=== PATIENT | female | born 1935 | race Caucasian/White ===

== ENCOUNTER 2021-03-05 13:07 | Inpatient (IN) | payer MEDICARE, SELFPAY ==
[2021-03-05] VITALS (11 sets, daily range): BP systolic 103–137; BP diastolic 49–74; PULSE 84–123; RESP 14–23; TEMP 36.6–37.6; O2SAT 96–99
--- NOTE | ~2021-03-05 | XR_ITS ---
EXAMINATION: XR chest 1V portable EXAM DATE: 03/05/2021 13:31 INDICATION: Altered mental status. TECHNIQUE: Portable AP frontal chest x-ray was obtained. Comparison is made to prior examination from 07/10/2018. FINDINGS: The lungs are clear. There are no pleural effusions. Cardiac silhouette is prominent but magnified on this AP technique. There is no pneumothorax suspected. The bones and soft tissues are unremarkable. IMPRESSION: No acute cardiopulmonary findings. Reviewed, dictated and finalized at location A.
--- NOTE | ~2021-03-05 | CT_ITS ---
EXAMINATION: CT brain wo con DATE: 03/10/2021 16:41 INDICATION: Confusion. TECHNIQUE: Computed tomography (CT) of the head was performed without intravenous contrast. The mA wa s adjusted according to patient size. Iterative reconstruction technique was employed. The dose-lengt h product was 605.33 mGy-cm. COMPARISON: Head CT 03/05/2021 FINDINGS: There is no intracranial hemorrhage, acute infarction, or abnormal intracranial mass lesion . There are scattered areas of low attenuation in the cerebral white matter, which is within normal l imits for the patient's age. The ventricles are normal in size. There is mild mucosal thickening in t he ethmoid sinuses. There are likely changes of ocular lens replacement surgeries. There are trace bi lateral mastoid effusions. IMPRESSION: 1. Normal aging brain. Reviewed, dictated and finalized at location A. IMPRESSION: 1. Normal aging brain.
--- NOTE | ~2021-03-05 | XR_ITS ---
EXAMINATION: XR hip RT 2V w AP pelvis EXAM DATE: 03/05/2021 14:20 INDICATION: Fall, right leg pain. Initial encounter. TECHNIQUE: Right hip frontal, crosstable lateral projections for interpretation. Frontal projection p kavin. Comparison is made to prior examination from 07/07/2018. FINDINGS: Acute closed posttraumatic right hip transcervical femoral neck fracture with superior disp lacement, impaction. Pelvic ring appears intact. IMPRESSION: Acute right hip transcervical neck fracture, impaction and superior displacement. Reviewed, dictated and finalized at location A. IMPRESSION: Acute right hip transcervical neck fracture, impaction and superio r displacement.
--- NOTE | ~2021-03-05 | CT_ITS ---
EXAMINATION: CT brain wo con EXAM DATE: 03/05/2021 13:54 INDICATION: Fall right head injury. Altered mental status. TECHNIQUE: Spiral CT of the head was performed without contrast. Axial, coronal and sagittal images were reviewed. The dose-length product (DLP) for this examination was 681.00 mGy-cm. The exposure w as tailored according to patient size, and iterative reconstruction (ASIR) was used as additional dos e reduction technique. Comparison is made to prior examination from 07/07/2018. FINDINGS: There is no acute intraparenchymal hemorrhage. No evidence of intraparenchymal brain mass lesion. No evidence of acute infarction. Please note that initial head CT has limited sensitivity f or small or acute infarctions. There is periventricular and subcortical hypodensity, nonspecific but probably related to small vessel ischemic disease. There is prominence of the sulci and ventricles related to cerebral atrophy. There is intracranial carotid arteriosclerosis. There are no extra-ax ial collections. There is no mass effect or midline shift. Patient has had bilateral ocular lens dhaliwal rgery. Soft tissue is unremarkable. The visualized sinuses and mastoid air cells are well aerated. IMPRESSION: 1. No acute intracranial findings. 2. Chronic age related findings. Reviewed, dictated and finalized at location A.
--- NOTE | ~2021-03-05 | US_ITS ---
EXAMINATION: US renal BI DATE: 03/11/2021 16:54 INDICATION: Fungal infection. TECHNIQUE: Multiple ultrasound grayscale images of the kidneys were obtained. COMPARISON: None. FINDINGS: The right kidney measures 9.5 x 4.4 x 5.1 cm. The left kidney measures 9.3 x 4.9 x 5.8 cm. The kidney s demonstrate normal parenchymal echogenicity. There is no hydronephrosis. The bladder is normal. IMPRESSION: 1. Normal kidneys. No hydronephrosis. Reviewed, dictated and finalized at location A.
--- NOTE | ~2021-03-05 | XR_ITS ---
XR hip RT min 2V DATE: 03/06/2021 19:05 INDICATION: Right bipolar hip TECHNIQUE: Postoperative AP and crosstable lateral views of right hip COMPARISON: 03/05/2021 right hip FINDINGS: There is resection of the right femoral head and replacement by a bipolar hip prosthesis wh ich is normally positioned in the right acetabular fossa. There is expected mild postoperative intra- articular air. Diffuse osteopenia. The pubic right sacroiliac joint are intact. IMPRESSION: Right bipolar hip replacement Reviewed, dictated and finalized at location A.
--- NOTE | 2021-03-05 13:18 | ECG_ITS ---
Measurements Intervals Foster Rate: 104 P: 87 GA: 118 QRS: 48 QRSD: 86 T: 61 QT: 347 QTc: 458 Interpretive Statements SINUS TACHYCARDIA WITH SHORT GA INTERVAL MINIMAL Q WAVES- INF/HIGH LAT LEADS BASELINE ARTIFACT- I, II, AVR, V1 BORDERLINE ECG Electronically Signed On 03-05-2021 17:20:12 CDT by Justin Phillips D.O.
[2021-03-05 13:35] LABS: Basophils Percent Auto 0.1 % (0.2-1.2); Hematocrit 32.7 % (37.0-47.0); Hemoglobin 10.6 g/dL (12.0-15.0); Immature Granulocyte Absolute 0.09 K/mm3 (0.00-0.031); Immature Granulocyte Percent A 0.8 % (0-0.5); Lymphocytes Absolute Auto 0.49 K/mm3 (0.9-3.2); Lymphocytes Percent Auto 4.5 % (18.3-44.2); Mean Corpuscular HGB Conc 32.4 g/dl (32-36); Mean Corpuscular Hemoglobin 29.1 pg (26-34); Mean Corpuscular Volume 89.8 fl (80-100); Mean Platelet Volume 9.1 fl (7.4-10.4); Monocytes Absolute Auto 0.5 K/mm3 (0.1-0.6); Monocytes Percent Auto 4.5 % (2.6-8.5); Neutrophils Absolute Auto 9.8 K/mm3 (1.3-6.7); Neutrophils Percent Auto 90.1 % (45.5-73.1); Platelet Count Result 283 k/mm3 (150-375); Red Blood Count 3.64 M/mm3 (4.2-5.4); Red Cell Distribution Width 13.3 % (11.5-14.5); White Blood Count 10.9 K/mm3 (4.5-10.0)
--- NOTE | 2021-03-05 13:42 | ED.FALL ---
HPI - Fall General Chief Complaint: Fall Stated Complaint: fall, ams Time Seen by Provider: 03/05/21 13:25 History of Present Illness HPI Narrative: 85 yo female w/ h/o dementia presents form home after a fall. She is not able to provide history due to mental status. Her daughters boyfriend provides the history. He reports that she fell early this morning. She has not been able to walk since that time. In addition to this she has seem more confused than usual. She did hit her head in the fall. Related Data Home Medications Medication Instructions Recorded Confirmed amlodipine 10 mg PO DAILY 03/05/21 03/05/21 ciprofloxacin HCl 250 mg PO BID 03/05/21 03/05/21 empagliflozin [Jardiance] 25 mg PO DAILY 03/05/21 03/05/21 escitalopram oxalate 5 mg PO DAILY 03/05/21 03/05/21 Allergies Allergy/AdvReac Type Severity Reaction Status Date / Time prednisone Allergy Unknown Other Verified 03/05/21 18:14 Review of Systems Review of Systems: ROS unobtainable: Yes unobtainable due to mental status PMFSH Past Medical History Medical History Diabetes Fuchs' corneal dystrophy Hypertension Kidney stone Parkinsons Surgical History Surgical History H/O cataract extraction H/O: hysterectomy History of vocal cord polypectomy Family History Family History Mother Congestive heart failure Son Diabetes mellitus Father Heart disease Social History Social History Social History: The patient is . Petrona cantrell is her durable power adult basic education manager for healthcare. The patient is listed as a full code. It was noted that the patient smoked as a teenager. According to records there is no alcohol or drug use. The patient has a son and daughter. Years smoked: 10 Smoking status: Former smoker Tobacco type: cigarettes Second hand tobacco smoke exposure: No Additional smoking assessment comments: quite in her 30s Alcohol intake: never Substance use: never Spiritual care concerns: No Exam Const: General: no acute distress and alert Nutritional Appearance: well nourished HENMT: Head: contusion left parietal and no lacerations Eyes: Pupils: Equal, round and reactive pupils present EOM: EOMs intact bilaterally Neck: Neck: normal visual inspection Resp: Effort & Inspection: normal respiratory effort Auscultation: clear to auscultation bilaterally, no rales, no rhonchi and no wheezes Cardio: Jugular venous distension: no JVD Rate: regular rate Rhythm: regular rhythm GI: Inspection: non-distended GI Palp: Yes Soft to palpation and No Tenderness to palpation present (GI) Skin: General skin exam: normal color Neuro: General: moves all extremities Speech: normal speech Other: Talkative, but extremely difficult to understand. Extrem: Other: Right leg shortened and externally rotated. Psych: Appearance: well kempt Affect: normal affect Course Vital Signs Vital signs: Vital Signs Temperature 37.6 C 03/05/21 13:11 Pulse Rate 103 H 03/05/21 13:11 Respiratory Rate 20 03/05/21 13:11 Blood Pressure 137/56 L 03/05/21 13:11 Pulse Oximetry 96 03/05/21 13:11 Temperature 36.6 C 03/05/21 20:44 Pulse Rate 104 H 03/05/21 20:44 Respiratory Rate 20 03/05/21 20:44 Blood Pressure 116/58 L 03/05/21 20:44 Pulse Oximetry 99 03/05/21 20:44 MDM - Fall Medical Records Attestation: I reviewed the patient's medical records. Lab Data Attestation: I reviewed the patient's lab results. Result diagrams: 03/05/21 13:24 03/05/21 13:24 Labs: Lab Results 03/05/21 03/05/21 03/05/21 Range/Units 13:24 13:24 13:24 WBC 10.9 H (4.5-10.0) K/mm3 RBC 3.64 L (4.2-5.4) M/mm3 Hgb 10.6 L (12.0-15.0) g/dL Hct 32.7 L (37.0
[2021-03-05 13:57] LABS: Alanine Aminotransferase 22 U/L (4-35); Albumin Level 4.1 g/dL (3.5-5.1); Alkaline Phosphatase 123 U/L (38-126); Anion Gap 11 mmol/L (8-16); Aspartate Amino Transferase 33 U/L (14-36); Bilirubin,Total 0.9 mg/dL (0.2-1.3); Blood Urea Nitrogen 12 mg/dL (7-17); CRP 2.7 mg/dL (<1.0); Carbon Dioxide 19 mmol/L (22-30); Chloride 109 mmol/L (98-107); Estimated CRCL calculation 38 ml/min; Estimated Glomerular Filt Rate > 60; Glucose 204 mg/dL (65-110); Potassium 3.9 mmol/L (3.4-5.0); Sodium 139 mmol/L (137-145)
[2021-03-05 14:58] LABS: Lactic Acid Reflex 1.3 mmol/L (0.7-2.1)
[2021-03-05 15:18] LABS: INR 1.1; Prothrombin Time 13.6 Seconds (11.1-14.7)
--- NOTE | 2021-03-05 16:26 | PM.CNOR ---
Assessment and Plan Assessment and plan (1) Displaced fracture of right femoral neck: Code(s): S72.001A - Fracture of unspecified part of neck of right femur, initial encounter for closed fracture Status: Acute Assessment and Plan: Displaced right femoral neck fracture. Patient seen and examined in the ER. Patient is a poor historian. Patient will need a Bipolar hemiarthroplasty of the right hip. Tentative plan is for surgery tomorrow. She will need to be NPO at midnight. Dr. Mendes will call the patient's floorperson tomorrow morning to discuss surgery. Spoke with ER nurse who stated that the patient has had trouble with anesthesia in the past. History of Present Illness HPI Consult date: 03/05/21 Chief complaint: hip fracture,ams Narrative: Patient seen and admitted through the ER. Patient had a fall and was found to have a displaced femoral neck fracture. Patient is a poor historian due to mental status. Notes pain in the right hip. Able to wiggle toes. No other complaints. Review of Systems Review of Systems: ROS unobtainable: Yes unobtainable due to mental status PMFSH Social History Social History Gender identity (if verbalized by the patient): Female Meds Home Medications and Allergies Home Medications Medication Instructions Recorded Confirmed Type amlodipine 10 mg PO DAILY 03/05/21 03/05/21 History empagliflozin [Jardiance] 25 mg PO DAILY 03/05/21 03/05/21 History escitalopram oxalate 5 mg PO DAILY 03/05/21 03/05/21 History Allergies Allergy/AdvReac Type Severity Reaction Status Date / Time prednisone Allergy Intermediate Other Verified 03/05/21 13:19 Vital Signs Vital Signs - 24 hr 03/05/21 13:11 Temperature 99.6 F Pulse Rate 103 H Respiratory Rate 20 Blood Pressure 137/56 L Pulse Oximetry 96 Exam Narrative: Patient is alert and oriented to self. Resting comfortably in bed. No acute distress. No erythema or ecchymosis. No rashes or lesions noted. Warm, normal appearing skin. Tenderness at left hip. Left lower leg shortened and externally rotated. Calf nontender. Distal pulses palpable. Normal capillary refill. Patient able to move and wiggle toes. Light touch sensation intact. Posadas catheter in place. Results Labs Result Diagrams: 03/05/21 13:24 08/26/21 13:24 Labs: Abnormal lab results 03/05/21 03/05/21 Range/Units 13:24 13:24 WBC 10.9 H (4.5-10.0) K/mm3 RBC 3.64 L (4.2-5.4) M/mm3 Hgb 10.6 L (12.0-15.0) g/dL Hct 32.7 L (37.0-47.0) % Immature Gran % (Auto) 0.8 H (0-0.5) % Neut % (Auto) 90.1 H (45.5-73.1) % Lymph % (Auto) 4.5 L (18.3-44.2) % Baso % (Auto) 0.1 L (0.2-1.2) % Lymph # (Auto) 0.49 L (0.9-3.2) K/mm3 Abs Immat Gran (auto) 0.09 H (0.00-0.031) K/mm3 Absolute Neuts (auto) 9.8 H (1.3-6.7) K/mm3 Chloride 109 H (98-107) mmol/L Carbon Dioxide 19 L (22-30) mmol/L Glucose 204 H (65-110) mg/dL C-Reactive Protein 2.7 H (<1.0) mg/dL H & H 03/05/21 Range/Units 13:24 Hgb 10.6 L (12.0-15.0) g/dL Hct 32.7 L (37.0-47.0) % Coagulation 03/05/21 Range/Units 13:24 INR 1.1 All other labs normal.
--- NOTE | 2021-03-05 17:31 | PM.IMHP ---
H&P: HPI History of Present Illness Date/Time: 03/05/21 17:31 this is a 85-year-old female patient who was brought in to the emergency room after a fall. The patient is mumbling and I am not able to communicate with the patient. I called her salesperson recreational vehicles Petrona Cantrell who is listed under her contacts in her chart and listed as her daughter. I left a message for them to return my phone call but have not heard back from them. I am not able to obtain any history of present illness from the patient or any other history at this point. I retrieved information from her old record. The hip and pelvis x-ray was read as acute right hip transcervical neck fracture, impaction and superior displacement. Head CT was read as no acute intracranial findings. Chronic age-related findings. Dr. Mendes has been consulted. Her H&H is listed as 10.6 and 32.7 which was comparable to her previous lab draw in 2019. Blood sugar was listed as 204. The patient is being admitted to inpatient services on the date of service of 03/05/2021. Chief Complaint: Fall Review of Systems Review of Systems: ROS unobtainable: Yes unobtainable due to mental status PMFSH Past Medical History Medical History (Updated 03/05/21 @ 17:55 by Cinthia Olivo NP) Diabetes Fuchs' corneal dystrophy Hypertension Kidney stone Parkinsons Surgical History Surgical History (Updated 03/05/21 @ 17:46 by Cinthia Olivo NP) H/O cataract extraction H/O: hysterectomy History of vocal cord polypectomy Family History Family History (Updated 03/05/21 @ 17:48 by Cinthia Olivo NP) Mother Congestive heart failure Son Diabetes mellitus Father Heart disease Social History Social History (Updated 03/05/21 @ 17:48 by Cinthia Olivo NP) Social History: The patient is . Petrona cantrell is her durable power claim attorney for healthcare. The patient is listed as a full code. It was noted that the patient smoked as a teenager. According to records there is no alcohol or drug use. The patient has a son and daughter. Gender identity (if verbalized by the patient): Female Meds Home Medications and Allergies Home Medications Medication Instructions Recorded Confirmed Type amlodipine 10 mg PO DAILY 03/05/21 03/05/21 History empagliflozin [Jardiance] 25 mg PO DAILY 03/05/21 03/05/21 History escitalopram oxalate 5 mg PO DAILY 03/05/21 03/05/21 History Allergies Allergy/AdvReac Type Severity Reaction Status Date / Time prednisone Allergy Intermediate Other Verified 03/05/21 13:19 Vital Signs Vital Signs - 24 hr 03/05/21 13:11 03/05/21 13:15 03/05/21 13:18 Temperature 37.6 C Pulse Rate 103 H 104 H 105 H Respiratory Rate 20 14 23 H Blood Pressure 137/56 L 137/56 L Pulse Oximetry 96 96 03/05/21 13:31 03/05/21 14:11 03/05/21 14:15 Temperature Pulse Rate 104 H 102 H 102 H Respiratory Rate 21 H 19 19 Blood Pressure 112/49 L Pulse Oximetry 98 98 98 03/05/21 14:30 03/05/21 14:45 03/05/21 15:00 Temperature Pulse Rate 108 H 123 H 108 H Respiratory Rate 21 H 23 H 21 H Blood Pressure Pulse Oximetry 99 97 Exam Const: General: cooperative, comfortable, no acute distress, well developed, awake and Physically active Nutritional Appearance: average body habitus and well nourished Orientation/consciousness: oriented to person Limitations: altered mental status HENMT: Head: normal to inspection, No palpable skull fracture present, normocephalic and atraumatic Ears: hearing grossly normal bilaterally and external ears normal General nose exam: Normal external nose present and Normal nares present Eyes: General: appearance normal, both eyes and all related structures Alignment and Position: alignment normal Periorbital: periorbital findings normal Eyelids: eyelids normal Conjunctivae: conjunctivae normal Sclera: sclerae normal Cornea: corneas normal Pupils: Equal, round and reactive pupils present (Ri
[2021-03-05 17:33] LABS: Add Urine Microscopic? YES; Appearance Urine Cloudy (Clear); Bacteria Urine Trace /hpf; Bilirubin Urine Negative (Negative); Blood Urine Negative (Negative); Budding Yeast Urine Present /hpf; Color Urine Yellow (Yellow); Glucose Urine UA 3+ mg/dL (Negative); Ketones Urine Trace mg/dL (Negative); Leukocyte Esterase Ur Trace LEU/UL (Negative); Mucus Urine Rare /lpf; Nitrate Urine Negative (Negative); Protein Urine Negative (Negative); RBC Urine 21-50 /hpf (0-2); Specific Grav Ur 1.022 (1.001-1.035); Squamous Epithelial Cell Urine Moderate /hpf (Few); Urobilinogen Urine Negative mg/dL (<2.0)
--- NOTE | 2021-03-05 18:00 | ADMGEN ---
This patient, Reba Petersen, was admitted to Medical Room 246-. Patient/family oriented to hospital policies and general routines including ID bracelet, bed and alarms, visiting hours, pain management, procedures, bathroom and other care routines, personal items, smoking policy, room service/diet, and visiting hours. Information on how to activate the Rapid Response Team has been discussed. Patient/Family are encouraged to report perceived risks to care and to ask questions if they do not understand what they are told or what they should do.
[2021-03-05] MEDS: SODIUM CHLORIDE 0.9% IV 1,000 ML 75 ML IV CONT (18:52)
[2021-03-05 22:18] LABS: Glucose Point of Care 119 mg/dl (65-105)
[2021-03-06] VITALS (19 sets, daily range): BP systolic 83–155; BP diastolic 49–102; PULSE 78–120; RESP 12–22; TEMP 36.3–38.2; O2SAT 93–100; BMI 21.2
[2021-03-06 06:01] LABS: Basophils Percent Auto 0.3 % (0.2-1.2); Eosinophils Percent Auto 0.3 % (0-4.4); Hematocrit 28.7 % (37.0-47.0); Hemoglobin 8.9 g/dL (12.0-15.0); Immature Granulocyte Absolute 0.03 K/mm3 (0.00-0.031); Immature Granulocyte Percent A 0.3 % (0-0.5); Lymphocytes Absolute Auto 0.54 K/mm3 (0.9-3.2); Lymphocytes Percent Auto 5.8 % (18.3-44.2); Mean Corpuscular Hemoglobin 28.6 pg (26-34); Mean Corpuscular Volume 92.3 fl (80-100); Monocytes Absolute Auto 0.6 K/mm3 (0.1-0.6); Monocytes Percent Auto 6.4 % (2.6-8.5); Neutrophils Absolute Auto 8.1 K/mm3 (1.3-6.7); Neutrophils Percent Auto 86.9 % (45.5-73.1); Platelet Count Result 214 k/mm3 (150-375); Red Blood Count 3.11 M/mm3 (4.2-5.4); Red Cell Distribution Width 13.6 % (11.5-14.5); White Blood Count 9.3 K/mm3 (4.5-10.0)
[2021-03-06 06:09] LABS: Alanine Aminotransferase 17 U/L (4-35); Albumin Level 3.3 g/dL (3.5-5.1); Alkaline Phosphatase 103 U/L (38-126); Anion Gap 11 mmol/L (8-16); Aspartate Amino Transferase 30 U/L (14-36); Blood Urea Nitrogen 11 mg/dL (7-17); Calcium 8.3 mg/dL (8.4-10.2); Carbon Dioxide 20 mmol/L (22-30); Chloride 108 mmol/L (98-107); Estimated CRCL calculation 43 ml/min; Estimated Glomerular Filt Rate > 60; Glucose 108 mg/dL (65-110); Potassium 3.6 mmol/L (3.4-5.0); Sodium 139 mmol/L (137-145)
[2021-03-06 06:34] LABS: Hemoglobin A1C 6.9 % (<5.7)
[2021-03-06] MEDS: SODIUM CHLORIDE 0.9% IV 1,000 ML 75 ML IV CONT (08:38)
--- NOTE | 2021-03-06 08:57 | P.PNIM_ITS ---
Progress Note: A&P Assessment and Plan (1) Displaced fracture of right femoral neck: Code(s): S72.001A - Fracture of unspecified part of neck of right femur, initial encounter for closed fracture Status: Acute Assessment and Plan: * Patient was found on the floor * Hip xray shows fracture * Ortho consulted * Post op day 0 * Pain: Roxicodone 2.5-5mg PO Q4hr PRN * Anti-emetic 4mg IV Q4hr * Cefazolin 2gm x 3 bags * DVT prophylaxis- SCDs * Urinary catheter for comfort, immobility, and strict I&Os (2) Hypertension: Code(s): I10 - Essential (primary) hypertension Status: Chronic Assessment and Plan: * Current blood pressure 126/54 * Continue home amlodipine 10mg PO daily * Trend BP * Adjust medications as needed (3) Diabetes: Code(s): E11.9 - Type 2 diabetes mellitus without complications Status: Chronic Assessment and Plan: * Glucose on labs 108 * Accu-Cheks AC and HS. * A1c 6.9 * Initiate SSI * Trend labs * Adjust medications as needed. (4) UTI (urinary tract infection): Code(s): N39.0 - Urinary tract infection, site not specified Status: Acute Assessment and Plan: * Reported that patient had a recent UTI that was being treated with Cipro 250mg PO BID * Patient seems better today with conversation and is not pulling off her clothes * UA shows trace leukocyte esterase, white blood cells 10-15, trace bacteria, rare mucus * Urine culture pending * Levofloxcin 750mg Q48hr IV started * deescalate antibiotics with culture results * strict I&Os (5) Acute metabolic encephalopathy: Code(s): G93.41 - Metabolic encephalopathy Status: Acute Assessment and Plan: * Head CT: Showed chronic age related changes * Probably from UTI * Trend symptoms for improvement Time Spent With Patient Time with patient: Greater than 35 minutes Subjective Date/time seen: 03/06/21 08:20 Interval history: Patient is an 85 year old female here after a fall with a notable hip fracture. Hip xray shows Acute right hip transcervical neck fracture, impaction and superior displacement. Since admission she has been very confused. Upon examination, she would answer some questions, but then would start to slur and kind talk jibberish. It is noted that she did have a UTI that was supposed to be treated with cipro outpatient however, it was noted that she was not taking her medications in an appropriate manner. She will follow commands, and she does recall some things. She told me that she was not where she was supposed to be, but could not tell me where she is. Her UA did show that there could be some residual UTI or even a persistent UTI that was never really treated. Patient started on levofloxacin for potential UTI. Cardiology has been consulted for risk assessment. It appears that the patient was seen by Dr. Nina in the past for bacteremia in 2019. At that time a AKILAH and ECHO was performed and the findings are listed below. The EKG at this visit shows sinus tachycardia. No ST elevation or depression noted. There is just concern with current mental status that a thorough history or even medication li st has been obtained. Echo from 07/12/2018 1. Normal left ventricular systolic function. No focal wall motion abnormalities. Normal left ventricular size. Normal left ventricular diastolic function. Ejection fraction is visually estimated at 60 %. 2. Normal appearance of the
--- NOTE | 2021-03-06 08:57 | PM.IMPN ---
Progress Note: A&P Assessment and Plan (1) Displaced fracture of right femoral neck: Code(s): S72.001A - Fracture of unspecified part of neck of right femur, initial encounter for closed fracture Status: Acute Assessment and Plan: Patient was found on the floor Hip xray shows fracture Ortho consulted Post op day 0 Pain: Roxicodone 2.5-5mg PO Q4hr PRN Anti-emetic 4mg IV Q4hr Cefazolin 2gm x 3 bags DVT prophylaxis- SCDs Urinary catheter for comfort, immobility, and strict I&Os (2) Hypertension: Code(s): I10 - Essential (primary) hypertension Status: Chronic Assessment and Plan: Current blood pressure 126/54 Continue home amlodipine 10mg PO daily Trend BP Adjust medications as needed (3) Diabetes: Code(s): E11.9 - Type 2 diabetes mellitus without complications Status: Chronic Assessment and Plan: Glucose on labs 108 Accu-Cheks AC and HS. A1c 6.9 Initiate SSI Trend labs Adjust medications as needed. (4) UTI (urinary tract infection): Code(s): N39.0 - Urinary tract infection, site not specified Status: Acute Assessment and Plan: Reported that patient had a recent UTI that was being treated with Cipro 250mg PO BID Patient seems better today with conversation and is not pulling off her clothes UA shows trace leukocyte esterase, white blood cells 10-15, trace bacteria, rare mucus Urine culture pending Levofloxcin 750mg Q48hr IV started deescalate antibiotics with culture results strict I&Os (5) Acute metabolic encephalopathy: Code(s): G93.41 - Metabolic encephalopathy Status: Acute Assessment and Plan: Head CT: Showed chronic age related changes Probably from UTI Trend symptoms for improvement Time Spent With Patient Time with patient: Greater than 35 minutes Subjective Date/time seen: 03/06/21 08:20 Interval history: Patient is an 85 year old female here after a fall with a notable hip fracture. Hip xray shows Acute right hip transcervical neck fracture, impaction and superior displacement. Since admission she has been very confused. Upon examination, she would answer some questions, but then would start to slur and kind talk jibberish. It is noted that she did have a UTI that was supposed to be treated with cipro outpatient however, it was noted that she was not taking her medications in an appropriate manner. She will follow commands, and she does recall some things. She told me that she was not where she was supposed to be, but could not tell me where she is. Her UA did show that there could be some residual UTI or even a persistent UTI that was never really treated. Patient started on levofloxacin for potential UTI. Cardiology has been consulted for risk assessment. It appears that the patient was seen by Dr. Nina in the past for bacteremia in 2019. At that time a AKILAH and ECHO was performed and the findings are listed below. The EKG at this visit shows sinus tachycardia. No ST elevation or depression noted. There is just concern with current mental status that a thorough history or even medication list has been obtained. Echo from 07/12/2018 1. Normal left ventricular systolic function. No focal wall motion abnormalities. Normal left ventricular size. Normal left ventricular diastolic function. Ejection fraction is visually estimated at 60 %. 2. Normal appearance of the mitral valve. In the parasternal long axis view only there appears to be a small mobile structure that is consistent in appearance of an infectious vegetation. Mild mitral annular calcification. AKILAH from 07/13/2018 1. Normal left ventricular size and function 2. Mild mitral, tricuspid and pulmonic insufficiency 3. Small 0.5 x 0.2 centimeter hypermobility seen on the ventricular side of the aortic valve consistent with a very small vegetation. Cannot exclude a Lambl's e
[2021-03-06 09:39] LABS: Glucose Point of Care 78 mg/dl (65-105)
[2021-03-06 12:02] LABS: Glucose Point of Care 103 mg/dl (65-105)
--- NOTE | 2021-03-06 12:07 | PM.CNOR ---
Assessment and Plan Assessment and plan (1) Displaced fracture of right femoral neck: Code(s): S72.001A - Fracture of unspecified part of neck of right femur, initial encounter for closed fracture Status: Acute Assessment and Plan: Completely displaced varus femoral neck fracture. Acute delirium related to recurrent urinary tract infections. Recent infection has been treated for several days. She is here from out of town staying with family when she fell yesterday. Spoke with the patient's daughter about the care plan. Plan for bipolar hemiarthroplasty of the right hip. Anticipate 2-3 weeks of rehab. She may be more able to move back home to [place] after that time. I recommend 1 month of DVT prophylaxis with Xarelto or Lovenox. Surgery pending medical and cardiac clearance today History of Present Illness HPI Consult date: 03/06/21 Chief complaint: hip fracture,ams Narrative: Patient complains of acute hip pain. Fell from standing height. Admitted through the emergency room for definitive management. No previous hip pain. Confused. History obtained from the patient's daughter. She was admitted for humerus fracture with ORIF in [facility] in November. Surgery was complicated by wound infection treated with multiple procedures. Extensive rehab stay. Marked by recurrent urinary tract infections and associated confusion. She is otherwise by report lucid. Previously lived at home alone. Review of Systems Review of Systems: Patient is confused. All systems reviewed & are unremarkable except as noted in HPI and below PMFSH Past Medical History Medical History Diabetes Fuchs' corneal dystrophy Hypertension Kidney stone Parkinsons Surgical History Surgical History H/O cataract extraction H/O: hysterectomy History of vocal cord polypectomy Family History Family History Mother Congestive heart failure Son Diabetes mellitus Father Heart disease Social History Social History Social History: The patient is . Petrona cantrell is her durable power insurance defense attorney for healthcare. The patient is listed as a full code. It was noted that the patient smoked as a teenager. According to records there is no alcohol or drug use. The patient has a son and daughter. Years smoked: 10 Smoking status: Former smoker Tobacco type: cigarettes Second hand tobacco smoke exposure: No Additional smoking assessment comments: quite in her 30s Alcohol intake: never Substance use: never Spiritual care concerns: No Meds Home Medications and Allergies Home Medications Medication Instructions Recorded Confirmed Type amlodipine 10 mg PO DAILY 03/05/21 03/05/21 History ciprofloxacin HCl 250 mg PO BID 03/05/21 03/05/21 History empagliflozin [Jardiance] 25 mg PO DAILY 03/05/21 03/05/21 History escitalopram oxalate 5 mg PO DAILY 03/05/21 03/05/21 History Allergies Allergy/AdvReac Type Severity Reaction Status Date / Time prednisone Allergy Unknown Other Verified 03/05/21 18:14 Vital Signs Vital Signs - 24 hr 03/05/21 13:11 03/05/21 13:15 03/05/21 13:18 Temperature 37.6 C Pulse Rate 103 H 104 H 105 H Respiratory Rate 20 14 23 H Blood Pressure 137/56 L 137/56 L Pulse Oximetry 96 96 03/05/21 13:31 03/05/21 14:11 03/05/21 14:15 Temperature Pulse Rate 104 H 102 H 102 H Respiratory Rate 21 H 19 19 Blood Pressure 112/49 L Pulse Oximetry 98 98 98 03/05/21 14:30 03/05/21 14:45 03/05/21 15:00 Temperature Pulse Rate 108 H 123 H 108 H Respiratory Rate 21 H 23 H 21 H Blood Pressure 131/74 135/74 Pulse Oximetry 97 99 97 03/05/21 18:00 03/05/21 20:44 03/06/21 04:38 Temperature 37.4 C 36.6 C 36.3 C L Pulse Rate 84 104 H 99 Respirat
--- NOTE | 2021-03-06 12:39 | PM.CNCAR ---
Assessment and Plan Assessment and plan (1) Preop cardiovascular exam: Code(s): Z01.810 - Encounter for preprocedural cardiovascular examination Status: Acute Assessment and Plan: Patient is at low risk of perioperative cardiovascular complications. She has no cardiac symptoms nor does she have any worrisome EKG findings. No further workup needed prior to surgery. (2) Hypertension: Code(s): I10 - Essential (primary) hypertension Status: Chronic Assessment and Plan: Continue amlodipine (3) Diabetes: Code(s): E11.9 - Type 2 diabetes mellitus without complications Status: Chronic Assessment and Plan: Per hospitalist (4) UTI (urinary tract infection): Code(s): N39.0 - Urinary tract infection, site not specified Status: Acute Assessment and Plan: On antibiotics (5) Displaced fracture of right femoral neck: Code(s): S72.001A - Fracture of unspecified part of neck of right femur, initial encounter for closed fracture Status: Acute Assessment and Plan: Surgery scheduled for later today History of Present Illness History of Present Illness Consult date/time: 03/06/21 12:39 Requesting physician: Herber Huber APN-C Consult reason: pre-op evaluation Reason For Visit: hip fracture,ams Narrative: Reason consultation: Preoperative evaluation Requesting provider Herber Huber Date of service 03/06/2021 History patient is an 85-year-old female who came into emergency department does of mental status changes and a fall. She reportedly fell after tripping. She sustained a right hip neck fracture. Orthopedic surgery has been consulted and she is scheduled for surgery later today. She was seen in 2019 and at that time she had a normal ejection fraction. Her EKG is unremarkable except for sinus tachycardia short MO interval but no acute ST or T-wave abnormalities. Patient does answer yes and no questions and she denies any chest pain, shortness of breath, syncope, presyncope, paroxysmal nocturnal dyspnea, orthopnea, edema palpitations. Review of Systems Review of Systems: All systems reviewed & are unremarkable except as noted in HPI and below Constitutional: Constitutional: Reports weakness Eyes: Eyes: Denies blurry vision ENT: Reports Normal hearing present Cardiovascular: Cardiovascular: Denies chest pain Respiratory: Respiratory: Denies dyspnea Gastrointestinal: Gastrointestinal: Denies abdominal pain Genitourinary: Genitourinary: Denies flank pain Musculoskeletal: Musculoskeletal: Reports arthralgias Comments: Hip pain Integumentary/Breasts: Skin/Breast: Denies dry skin Neurologic: Denies headache(s) Psychiatric: Psychiatric: Denies anxiety Endocrine: Endocrine: Denies fatigue Hematologic/Lymphatic: Hematologic/Lymphatic: Denies easy bleeding Allergic/Immunologic: Allergic/Immunologic: Denies GI upset with certain foods PMFSH Past Medical History Medical History Diabetes Fuchs' corneal dystrophy Hypertension Kidney stone Parkinsons Surgical History Surgical History H/O cataract extraction H/O: hysterectomy History of vocal cord polypectomy Family History Family History Mother Congestive heart failure Son Diabetes mellitus Father Heart disease Social History Social History Social History: The patient is . Petrona cantrell is her durable power senior attorney for healthcare. The patient is listed as a full code. It was noted that the patient smoked as a teenager. According to records there is no alcohol or drug use. The patient has a son and daughter. Years smoked: 10 Smoking status: Former smoker Tobacco type: cigarettes Second hand tobacco smoke exposure: N
--- NOTE | 2021-03-06 13:36 | WPDANESEPPF ---
Anes - Initial Pre Proc Eval Procedure: Operation Date: 03/06/21 16:00 Proposed Procedures p Right Bipolar - Randal Mendes MD Date/Time: 03/06/21 13:36 Surgeon: Sacha Kirk MD Pre Op Diagnosis: hip fracture,ams Patient Data Age: 85 Gender: F Height: 1.6 m Weight: 54.3 kg Last Vital Signs Temp 36.3 C L 03/06/21 04:38 Pulse 103 H 03/06/21 08:01 Resp 18 03/06/21 08:01 BP 126/52 L 03/06/21 04:38 Pulse Ox 94 03/06/21 08:01 Allergies Allergy/AdvReac Type Severity Reaction Status Date / Time prednisone Allergy Unknown Other Verified 03/05/21 18:14 Home Medications Medication Instructions Recorded Confirmed Type amlodipine 10 mg PO DAILY 03/05/21 03/05/21 History ciprofloxacin HCl 250 mg PO BID 03/05/21 03/05/21 History empagliflozin [Jardiance] 25 mg PO DAILY 03/05/21 03/05/21 History escitalopram oxalate 5 mg PO DAILY 03/05/21 03/05/21 History Laboratory Tests 03/05/21 03/05/21 03/05/21 13:24 13:24 13:24 WBC 10.9 K/mm3 H K/mm3 (4.5-10.0) RBC 3.64 M/mm3 L M/mm3 (4.2-5.4) Hgb 10.6 g/dL L g/dL (12.0-15.0) Hct 32.7 % L % (37.0-47.0) MCV 89.8 fl fl (80-100) MCH 29.1 pg pg (26-34) MCHC 32.4 g/dl g/dl (32-36) RDW 13.3 % % (11.5-14.5) Plt Count 283 k/mm3 k/mm3 (150-375) MPV 9.1 fl fl (7.4-10.4) Immature Gran % (Auto) 0.8 % H % (0-0.5) Neut % (Auto) 90.1 % H % (45.5-73.1) Lymph % (Auto) 4.5 % L % (18.3-44.2) [place] % (Auto) 4.5 % % (2.6-8.5) Eos % (Auto) 0.0 % % (0-4.4) Baso % (Auto) 0.1 % L % (0.2-1.2) Lymph # (Auto) 0.49 K/mm3 L K/mm3 (0.9-3.2) [place] # (Auto) 0.5 K/mm3 K/mm3 (0.1-0.6) Eos # (Auto) 0.0 K/mm3 K/mm3 (0-0.3) Baso # (Auto) 0.0 K/mm3 K/mm3 (0.0-0.1) Abs Immat Gran (auto) 0.09 K/mm3 H K/mm3 (0.00-0.031) Absolute Neuts (auto) 9.8 K/mm3 H K/mm3 (1.3-6.7) Absolute Nucleated RBC 0.0 K/mm3 K/mm3 (0.0-0.012) Nucleated RBC % 0.0 % % (0.0-0.2) PT 13.6 Seconds Seconds (11.1-14.7) INR 1.1 APTT 27.0 SECONDS SECONDS (22.3-36.8) Sodium 139 mmol/L mmol/L (137-145) Potassium 3.9 mmol/L mmol/L (3.4-5.0) Chloride 109 mmol/L H mmol/L (98-107) Carbon Dioxide 19 mmol/L L mmol/L (22-30) Anion Gap 11 mmol/L mmol/L (8-16) BUN 12 mg/dL mg/dL (7-17) Creatinine 0.80 mg/dL mg/dL (0.7-1.0) Estim Creat Clear Calc 38 ml/min ml/min Estimated GFR > 60 (59 - ) Glucose 204 mg/dL H mg/dL (65-110) POC Capillary Glucose Hemoglobin A1c Lactic Acid Calcium 9.0 mg/dL mg/dL (8.4-10.2) Magnesium Total Bilirubin 0.9 mg/dL mg/dL (0.2-1.3) AST 33 U/L U/L (14-36) ALT 22 U/L U/L (4-35) Alkaline Phosphatase 123 U/L U/L (38-126) C-Reactive Protein 2.7 mg/dL H mg/dL (<1.0) Total Protein 7.0 g/dL g/dL (6.3-8.2) Albumin 4.1 g/dL g/dL (3.5-5.1) TSH (Reflex) Urine Color Urine Appearance Urine pH Ur Specific [place] Urine Protein Urine Glucose (UA) Urine Ketones Ur Blood (Man) Urine Nitrate Urine Bilirubin Urine Urobilinogen Leukocyte Esterase Rfl Urine RBC Urine WBC Ur Squamous Epith Cells Urine Bacteria Urine Mucus Urine Yeast (Budding) Blood Type Antibody Screen 03/05/21 03/05/21 03/05/21 14:26 16:41 18:07 WBC RBC Hgb Hct MCV
--- NOTE | 2021-03-06 14:42 | PC.NURSE ---
To OR per bed, IV right hand. Report given to Cat.
[2021-03-06] MEDS: LACTATED RINGERS 1,000 ML 30 ML IV CONT (15:00)
[2021-03-06] MEDS: TRANEXAMIC ACID 1,000MG/ISO100 1,000 MG/100 ML BAG 200 MG IVPB (15:07)
--- NOTE | 2021-03-06 15:10 | WPDHPUPDATE1 ---
History and Physical Update Update Date/Time: 03/06/21 15:10 History and Physical has been reviewed, including an updated exam of the patient. There are NO changes in the patient's condition. Risks, benefits, and alternatives have been discussed and questions answered. Patient agrees to proceed with procedure.
[2021-03-06] MEDS: ceFAZolin 2 GM/D5W 50 ML 2 GM/50 ML BAG IVPB ×2 (16:22→23:45)
--- NOTE | 2021-03-06 17:43 | W.PM.PROC2 ---
Procedure Note - Detailed Date of Procedure 03/06/21 Pre-op Diagnosis Right hip displaced femoral neck frature. Post-op Diagnosis same Procedure Performed Bipolar hemiarthroplasty, right hip. Surgeon Randal Mendes MD Safety And Skill Based Pay Manager Phyllis Al PA-C Anesthesia general Description of Procedure A general anesthetic was administered. The patient was carefully placed in the lateral decubitus position on the peg board positioner. An axillary roll was placed. The hip was prepped and draped in the usual sterile fashion. A minimally invasive optimized posterior approach to the hip was performed. An L shaped capsulotomy was created along the upper border of the piriformis. The short external rotators were tagged with number 2 high strength suture for later repair. The labrum was preserved. The femoral neck cut was performed. The femoral head was removed and sized. The acetabular floor was cleared of debris and loose tissue. The femur was sequentially reamed and broached. Trial was assessed for leg length and stability. The real component was impacted into position, trialed again, and the final head and bipolar component were assembled. The hip was reduced after copious irrigation. The short external rotators and capsule were repaired through drill holes in the posterior trochanter. The wound was closed in layers with 1 vicryl, 2,0, and 2-0 running barbed suture. Adhesive tapes were placed on the skin, followed by a sterile gauze dressing. The patient was extubated and brought to the recovery room. Physician financial planning assistant, Phyllis Al PA-C, required for surgery; including patient positioning, draping, tissue retraction, maintaining instrument position, dislocation and relocation of the hip, wound closure, and dressing placement. Implants [place] Accolade 2 hip stem. Size 5, 127 degree high offset, 44 mm bipolar component, 28 mm +0 metal head. Estimated Blood Loss 150 Urine Output 800 Drains No Complications None Condition stable Disposition PACU
[2021-03-06] MEDS: fentaNYL CITRATE INJ (*CRX) 100 MCG/2 ML VIAL 25 MCG IV PUSH ×3 (18:15→18:39)
[2021-03-06 18:26] LABS: Glucose Point of Care 88 mg/dl (65-105)
--- NOTE | 2021-03-06 18:40 | SUR.PHASEI ---
8540- Call to DONATO Durham to clarify orders placed for patient's transfer back to floor. Per DONATO cancel orders that were placed incorrectly.
--- NOTE | 2021-03-06 19:05 | SUR.PHASEI ---
190- SBAR faxed to [facility] at this time, notified floor.
--- NOTE | 2021-03-06 19:10 | SUR.PHASEI ---
1910- Patient history of Parkinson's Disease with tremors making obtaining patient's BP difficult during time in phase 1 PACU. Patient's current BP 108/77 obtained from left arm with HR in 80's NSR.
--- NOTE | 2021-03-06 20:55 | ADMGEN ---
This patient, Reba Petersen, was admitted to Medical Room [facility]- at 1930. Patient/family oriented to hospital policies and general routines including ID bracelet, bed and alarms, visiting hours, pain management, procedures, bathroom and other care routines, personal items, smoking policy, room service/diet, and visiting hours. Information on how to activate the Rapid Response Team has been discussed. Patient/Family are encouraged to report perceived risks to care and to ask questions if they do not understand what they are told or what they should do.
--- NOTE | 2021-03-06 20:57 | PC.NURSE ---
Addendum entered by Nancy Mckee RN 03/06/21 20:58: Received pt into her room from surgery at 1930 Original Note: received report from Cat in OR at 1930. )
[2021-03-06] MEDS: SODIUM CHLORIDE 0.9% IV 1,000 ML 125 ML IV CONT (21:12)
[2021-03-06 21:39] LABS: Glucose Point of Care 79 mg/dl (65-105)
[2021-03-07] VITALS (13 sets, daily range): BP systolic 117–139; BP diastolic 48–60; PULSE 68–108; RESP 14–22; TEMP 36.4–36.9; O2SAT 95–100
[2021-03-07] MEDS: SODIUM CHLORIDE 0.9% IV 1,000 ML 125 ML IV CONT (02:39)
[2021-03-07 06:03] LABS: Basophils Percent Auto 0.2 % (0.2-1.2); Eosinophils Absolute Auto 0.1 K/mm3 (0-0.3); Eosinophils Percent Auto 0.6 % (0-4.4); Hematocrit 27.9 % (37.0-47.0); Hemoglobin 8.6 g/dL (12.0-15.0); Immature Granulocyte Absolute 0.05 K/mm3 (0.00-0.031); Immature Granulocyte Percent A 0.5 % (0-0.5); Lymphocytes Absolute Auto 0.59 K/mm3 (0.9-3.2); Lymphocytes Percent Auto 5.7 % (18.3-44.2); Mean Corpuscular HGB Conc 30.8 g/dl (32-36); Mean Corpuscular Volume 93.9 fl (80-100); Mean Platelet Volume 9.3 fl (7.4-10.4); Monocytes Absolute Auto 0.9 K/mm3 (0.1-0.6); Monocytes Percent Auto 8.4 % (2.6-8.5); Neutrophils Absolute Auto 8.7 K/mm3 (1.3-6.7); Neutrophils Percent Auto 84.6 % (45.5-73.1); Platelet Count Result 200 k/mm3 (150-375); Red Blood Count 2.97 M/mm3 (4.2-5.4); Red Cell Distribution Width 13.7 % (11.5-14.5); White Blood Count 10.3 K/mm3 (4.5-10.0)
[2021-03-07 06:10] LABS: Anion Gap 9 mmol/L (8-16); Blood Urea Nitrogen 15 mg/dL (7-17); Calcium 8.2 mg/dL (8.4-10.2); Carbon Dioxide 18 mmol/L (22-30); Chloride 116 mmol/L (98-107); Estimated CRCL calculation 38 ml/min; Estimated Glomerular Filt Rate > 60; Glucose 88 mg/dL (65-110); Potassium 3.7 mmol/L (3.4-5.0); Sodium 143 mmol/L (137-145)
[2021-03-07] MEDS: ESCITALOPRAM OXALATE 5 MG TABLET PO (08:57)
[2021-03-07] MEDS: DOCUSATE SODIUM 100 MG CAPSULE PO ×2 (08:57→17:16)
[2021-03-07] MEDS: amLODIPine BESYLATE 5 MG TABLET 10 MG PO (08:57)
[2021-03-07] MEDS: ceFAZolin 2 GM/D5W 50 ML 2 GM/50 ML BAG IVPB ×2 (08:58→17:15)
--- NOTE | 2021-03-07 09:49 | PCPTNOTE ---
Attempted PT eval this a.m. - pt refused - will try again this afternoon.
--- NOTE | 2021-03-07 10:05 | P.PNIM_ITS ---
Progress Note: A&P Assessment and Plan (1) Displaced fracture of right femoral neck: Code(s): S72.001A - Fracture of unspecified part of neck of right femur, initial encounter for closed fracture Status: Acute Assessment and Plan: * Patient was found on the floor * Hip xray shows fracture * Ortho consulted * Post op day 1 * Pain: Roxicodone 2.5-5mg PO Q4hr PRN * Anti-emetic 4mg IV Q4hr * Cefazolin 2gm x 3 bags * DVT prophylaxis- SCDs and Xarelto * Urinary catheter for comfort, immobility, and strict I&Os (2) Hypertension: Code(s): I10 - Essential (primary) hypertension Status: Chronic Assessment and Plan: * Current blood pressure 133/54 * Continue home amlodipine 10mg PO daily * Trend BP * Adjust medications as needed (3) Diabetes: Code(s): E11.9 - Type 2 diabetes mellitus without complications Status: Chronic Assessment and Plan: * Glucose on labs 88 * Accu-Cheks AC and HS. * A1c 6.9 * Initiate SSI * Trend labs * Adjust medications as needed. (4) UTI (urinary tract infection): Code(s): N39.0 - Urinary tract infection, site not specified Status: Acute Assessment and Plan: * Reported that patient had a recent UTI that was being treated with Cipro 250mg PO BID * Patient seems better today with conversation and is not pulling off her clothes * UA shows trace leukocyte esterase, white blood cells 10-15, trace bacteria, rare mucus * Urine culture pending * Levofloxcin 750mg Q48hr IV started * deescalate antibiotics with culture results * strict I&Os (5) Acute metabolic encephalopathy: Code(s): G93.41 - Metabolic encephalopathy Status: Acute Assessment and Plan: * Seems to be slowly improving since being on antibiotics * Head CT: Showed chronic age related changes * Probably from UTI * Trend symptoms for improvement Time Spent With Patient Time with patient: Greater than 35 minutes Subjective Date/time seen: 03/07/21 09:25 Interval history: Patient is an 85-year-old female is here post fall. Dr. Mendes took patient to the OR 03/06/21 for hemiarthroplasty of the left hip. Today patient seems if she is little better. She states that she does not have any pain right now. She also denies chest pain, shortness of breath, nausea, vomiting, diarrhea, constipation, fevers, sweats, chills. Patient did know where she was at however I think this visit nurse just left and reorientation her. Patient also is still kind of slurry but not so to rash. She did tell me she was from [place] in where she was from. She also stated that she was here for her grandson's wedding. I feel that the some of the encephalopathy is from the UTI. Review of Systems Review of Systems: All systems reviewed & are unremarkable except as noted in HPI and below Exam Const: General: cooperative, healthy appearing, comfortable, no acute distress, well developed, alert, awake, Physically active, confusion, lethargic and tired appearing Nutritional Appearance: average body habitus and well nourished Orientation/consciousness: oriented to person, oriented to place, oriented to time, patient oriented x3 and confusion Limitations: altered mental status HENMT: Head: normal to inspection, No palpable skull fracture present, normocephalic and atraumatic Ears: hearing grossly normal bilaterally and external ears normal General nos
--- NOTE | 2021-03-07 10:05 | PM.IMPN ---
Progress Note: A&P Assessment and Plan (1) Displaced fracture of right femoral neck: Code(s): S72.001A - Fracture of unspecified part of neck of right femur, initial encounter for closed fracture Status: Acute Assessment and Plan: Patient was found on the floor Hip xray shows fracture Ortho consulted Post op day 1 Pain: Roxicodone 2.5-5mg PO Q4hr PRN Anti-emetic 4mg IV Q4hr Cefazolin 2gm x 3 bags DVT prophylaxis- SCDs and Xarelto Urinary catheter for comfort, immobility, and strict I&Os (2) Hypertension: Code(s): I10 - Essential (primary) hypertension Status: Chronic Assessment and Plan: Current blood pressure 133/54 Continue home amlodipine 10mg PO daily Trend BP Adjust medications as needed (3) Diabetes: Code(s): E11.9 - Type 2 diabetes mellitus without complications Status: Chronic Assessment and Plan: Glucose on labs 88 Accu-Cheks AC and HS. A1c 6.9 Initiate SSI Trend labs Adjust medications as needed. (4) UTI (urinary tract infection): Code(s): N39.0 - Urinary tract infection, site not specified Status: Acute Assessment and Plan: Reported that patient had a recent UTI that was being treated with Cipro 250mg PO BID Patient seems better today with conversation and is not pulling off her clothes UA shows trace leukocyte esterase, white blood cells 10-15, trace bacteria, rare mucus Urine culture pending Levofloxcin 750mg Q48hr IV started deescalate antibiotics with culture results strict I&Os (5) Acute metabolic encephalopathy: Code(s): G93.41 - Metabolic encephalopathy Status: Acute Assessment and Plan: Seems to be slowly improving since being on antibiotics Head CT: Showed chronic age related changes Probably from UTI Trend symptoms for improvement Time Spent With Patient Time with patient: Greater than 35 minutes Subjective Date/time seen: 03/07/21 09:25 Interval history: Patient is an 85-year-old female is here post fall. Dr. Mendes took patient to the OR 03/06/21 for hemiarthroplasty of the left hip. Today patient seems if she is little better. She states that she does not have any pain right now. She also denies chest pain, shortness of breath, nausea, vomiting, diarrhea, constipation, fevers, sweats, chills. Patient did know where she was at however I think this visit nurse just left and reorientation her. Patient also is still kind of slurry but not so to rash. She did tell me she was from [place] in where she was from. She also stated that she was here for her grandson's wedding. I feel that the some of the encephalopathy is from the UTI. Review of Systems Review of Systems: All systems reviewed & are unremarkable except as noted in HPI and below Exam Const: General: cooperative, healthy appearing, comfortable, no acute distress, well developed, alert, awake, Physically active, confusion, lethargic and tired appearing Nutritional Appearance: average body habitus and well nourished Orientation/consciousness: oriented to person, oriented to place, oriented to time, patient oriented x3 and confusion Limitations: altered mental status HENMT: Head: normal to inspection, No palpable skull fracture present, normocephalic and atraumatic Ears: hearing grossly normal bilaterally and external ears normal General nose exam: Normal external nose present and Normal nares present Eyes: General: appearance normal, both eyes and all related structures Alignment and Position: alignment normal Periorbital: periorbital findings normal Eyelids: eyelids normal Conjunctivae: conjunctivae normal Sclera: sclerae normal Cornea: corneas normal Pupils: Equal, round and reactive pupils present (Right people slightly smaller than left) EOM: EOMs intact bilaterally Neck: Neck: normal visual inspection, full ROM, no lymphadenopathy, trachea mid
[2021-03-07 10:41] LABS: Glucose Point of Care 115 mg/dl (65-105)
--- NOTE | 2021-03-07 11:16 | PM.PNORT ---
Progress Note: A&P Assessment and Plan (1) Displaced fracture of right femoral neck: Code(s): S72.001A - Fracture of unspecified part of neck of right femur, initial encounter for closed fracture Status: Acute Assessment and Plan: Postoperative day 1 status post bipolar hemiarthroplasty. Radiographs satisfactory. Pain well controlled. Start formal physical therapy weightbearing as tolerated. VTE prophylaxis with Xarelto. Limit narcotics. Discussed care plan with the patient's family. Anticipate several weeks of rehab. Subjective Subjective Date/Time Seen: 03/07/21 11:16 Interval history: Resting comfortably. No distress. Less agitated in appearance. Exam Narrative: Sleeping comfortably. Wound nicely dressed. No drainage. Thigh soft. No hematoma or tenderness. Achilles tendon deformity previously noted. Unchanged. No lower extremity edema. Capillary refill brisk. Objective Data Vital Signs Vital Signs: Vital Signs - 24 hr 03/06/21 14:00 03/06/21 14:52 03/06/21 17:49 Temperature 37.6 C 38.2 C H 37.0 C Pulse Rate 120 H 107 H 113 H Respiratory Rate 18 18 12 Blood Pressure 115/82 107/78 118/84 Pulse Oximetry 99 100 98 03/06/21 18:00 03/06/21 18:05 03/06/21 18:20 Temperature Pulse Rate 96 98 89 Respiratory Rate 15 14 14 Blood Pressure 113/50 L 108/49 L 154/99 H Pulse Oximetry 98 98 99 03/06/21 18:35 03/06/21 18:50 03/06/21 19:05 Temperature Pulse Rate 85 85 85 Respiratory Rate 14 12 12 Blood Pressure 155/102 H 83/58 L 108/77 Pulse Oximetry 95 94 94 03/06/21 19:15 03/06/21 19:31 03/06/21 19:46 Temperature 36.8 C 36.7 C Pulse Rate 79 79 92 Respiratory Rate 12 20 20 Blood Pressure 121/88 110/52 L 114/52 L Pulse Oximetry 94 100 100 03/06/21 20:16 03/06/21 21:16 03/06/21 21:30 Temperature 36.6 C 36.9 C Pulse Rate 94 120 H 120 H Respiratory Rate 18 22 H Blood Pressure 117/87 112/56 L Pulse Oximetry 100 93 03/06/21 21:58 03/06/21 22:00 03/07/21 00:00 Temperature Pulse Rate 78 78 76 Respiratory Rate Blood Pressure Pulse Oximetry 03/07/21 00:54 03/07/21 04:00 03/07/21 05:16 Temperature 36.9 C 36.7 C Pulse Rate 108 H 82 93 Respiratory Rate 22 H 18 Blood Pressure 139/51 L 133/54 L Pulse Oximetry 96 100 03/07/21 09:17 03/07/21 10:15 Temperature 36.7 C Pulse Rate 99 Respiratory Rate 16 Blood Pressure 136/60 Pulse Oximetry 97 98 Intake/Output Intake/Output: Intake & Output 03/04/21 03/05/21 03/06/21 03/07/21 23:59 23:59 23:59 23:59 Intake Total 100 1300 1580 Output Total 2500 750 Balance 100 -1200 830 Meds/Results Medications: Active Medications Generic Name Dose Route Start Last Admin Trade Name Freq PRN Reason Stop Dose Admin Amlodipine Besylate 10 mg 03/06/21 09:00 03/07/21 08:57 Amlodipine Besylate 5 Mg Tablet PO 10 mg DAILY RONNY Administration Dextrose 12.5 gm 03/05/21 17:49 Dextrose 50% 25 Gm/50 Ml Syringe IV PUSH PRN PRN Hypoglycemia Protocol Docusate Sodium 100 mg 03/07/21 09:00 03/07/21 08:57 Docusate Sodium 100 Mg Capsule PO 100 mg BID RONNY Administration Escitalopram Oxalate 5 mg 03/06/21 09:00 03/07/21 08:57 Escitalopram Oxalate 5 Mg Tablet PO 5 mg DAILY RONNY Administration Fentanyl Citrate 25 mcg 03/06/21 13:37 03/06/21 18:39 Fentanyl Citrate Inj (*Crx) 100 Mcg/2 Ml Vial IV PUSH 25 mcg Q2M PRN Administration Pain Glucagon 1 mg 03/05/21 17:49 Glucagon For Inj 1 Mg Vial IM PRN PRN Hypoglycemia Protocol Glucose 15 gm 03/05/21 17:49 Glucose Oral Gel 15 Gm Of Glucse In 37.5 Gm Tube PO PRN PRN Hypoglycemia Protocol Dextrose 1,000 mls @ 100 mls/hr 03/05/21 17:49 Dextrose 5% 1,000 Ml IVPB PRN PRN Hypoglycemia Protocol Levofloxacin/Dextrose 750 mg in 150 mls @ 100 mls/hr 03/06/21 09:00 03/06/21 11:24 Levaquin 750 Mg/D5w 150 Ml IVPB Not Give
[2021-03-07 12:25] LABS: Glucose Point of Care 185 mg/dl (65-105)
[2021-03-07] MEDS: RIVAROXABAN 10 MG TABLET PO (17:15)
[2021-03-07] MEDS: ACETAMINOPHEN 500 MG TABLET 1000 MG PO ×2 (17:23→23:51)
[2021-03-07 18:25] LABS: Glucose Point of Care 154 mg/dl (65-105)
[2021-03-08] VITALS (12 sets, daily range): BP systolic 114–146; BP diastolic 45–69; PULSE 56–97; RESP 14–20; TEMP 36.2–36.7; O2SAT 98–100
[2021-03-08 00:02] LABS: Glucose Point of Care 135 mg/dl (65-105)
[2021-03-08 06:10] LABS: Hemoglobin 8.4 g/dL (12.0-15.0); Mean Corpuscular HGB Conc 31.1 g/dl (32-36); Mean Corpuscular Volume 93.1 fl (80-100); Mean Platelet Volume 9.3 fl (7.4-10.4); Platelet Count Result 184 k/mm3 (150-375); Red Cell Distribution Width 13.6 % (11.5-14.5)
[2021-03-08 06:26] LABS: Alanine Aminotransferase 9 U/L (4-35); Albumin Level 2.8 g/dL (3.5-5.1); Alkaline Phosphatase 98 U/L (38-126); Anion Gap 4 mmol/L (8-16); Aspartate Amino Transferase 32 U/L (14-36); Bilirubin,Total 0.7 mg/dL (0.2-1.3); Blood Urea Nitrogen 11 mg/dL (7-17); Calcium 7.8 mg/dL (8.4-10.2); Carbon Dioxide 22 mmol/L (22-30); Chloride 106 mmol/L (98-107); Estimated CRCL calculation 43 ml/min; Estimated Glomerular Filt Rate > 60; Glucose 140 mg/dL (65-110); Magnesium 1.9 mg/dL (1.6-2.3); Potassium 3.3 mmol/L (3.4-5.0); Sodium 132 mmol/L (137-145)
[2021-03-08] MEDS: ESCITALOPRAM OXALATE 5 MG TABLET PO (08:53)
[2021-03-08] MEDS: amLODIPine BESYLATE 5 MG TABLET 10 MG PO (08:53)
[2021-03-08] MEDS: DOCUSATE SODIUM 100 MG CAPSULE PO ×2 (08:53→17:58)
[2021-03-08 09:47] LABS: Glucose Point of Care 122 mg/dl (65-105)
--- NOTE | 2021-03-08 09:51 | P.PNIM_ITS ---
Progress Note: A&P Assessment and Plan (1) Displaced fracture of right femoral neck: Code(s): S72.001A - Fracture of unspecified part of neck of right femur, initial encounter for closed fracture Status: Acute Assessment and Plan: * Patient was found on the floor * Hip xray shows fracture * Ortho consulted * Post op day 1 * Pain: Roxicodone 2.5-5mg PO Q4hr PRN * Anti-emetic 4mg IV Q4hr * Cefazolin 2gm x 3 bags * DVT prophylaxis- SCDs and Xarelto * Urinary catheter for comfort, immobility, and strict I&Os (2) Hypertension: Code(s): I10 - Essential (primary) hypertension Status: Chronic Assessment and Plan: * Current blood pressure 125/69 * Continue home amlodipine 10mg PO daily * Trend BP * Adjust medications as needed (3) Diabetes: Code(s): E11.9 - Type 2 diabetes mellitus without complications Status: Chronic Assessment and Plan: * Glucose on labs 108 * Accu-Cheks AC and HS. * A1c 6.9 * Initiate SSI * Trend labs * Adjust medications as needed. (4) UTI (urinary tract infection): Code(s): N39.0 - Urinary tract infection, site not specified Status: Acute Assessment and Plan: * Reported that patient had a recent UTI that was being treated with Cipro 250mg PO BID * Patient seems better today with conversation and is not pulling off her clothes * UA shows trace leukocyte esterase, white blood cells 10-15, trace bacteria, rare mucus * Urine culture found Buffy glabrata, will repeat * Levofloxcin 750mg Q48hr IV Dose #2 * deescalate antibiotics with culture results * strict I&Os (5) Acute metabolic encephalopathy: Code(s): G93.41 - Metabolic encephalopathy Status: Acute Assessment and Plan: * Seems to be slowly improving since being on antibiotics * Head CT: Showed chronic age related changes * Probably from UTI * Trend symptoms for improvement Subjective Date/time seen: 03/08/21 08:30 Interval history: Patient is an 85-year-old female who is here for a left hip repair. Patient seems a lot better today she is more coherent and alert and oriented. She states that she feels pretty good she is just tired. She said she had issues with pain last night however went away and she feels okay today. She can tell me why she is here, where she is at, what happened to her, and why she is visiting this area. This a lot better than she has been in a few days. She denies chest pain, shortness of breath, sweats, fevers, chills, nausea, vomiting, abdominal pain. She does have good card grader bilaterally and she can move her toes with good pulses in all extremities. Review of Systems Review of Systems: All systems reviewed & are unremarkable except as noted in HPI and below Exam Const: General: cooperative, healthy appearing, comfortable, no acute distress, well developed, alert and tired appearing Nutritional Appearance: average body habitus and well nourished Orientation/consciousness: oriented to person, oriented to place, oriented to time and patient oriented x3 Limitations: physical limitations HENMT: Head: normal to inspection, No palpable skull fracture present, normocephalic and atraumatic Ears: hearing grossly normal bilaterally and external ears normal General nose exam: Normal external nose present and Normal nares present Eyes: General: appearance normal, both eyes and all related structures A
--- NOTE | 2021-03-08 09:51 | PM.IMPN ---
Progress Note: A&P Assessment and Plan (1) Displaced fracture of right femoral neck: Code(s): S72.001A - Fracture of unspecified part of neck of right femur, initial encounter for closed fracture Status: Acute Assessment and Plan: Patient was found on the floor Hip xray shows fracture Ortho consulted Post op day 1 Pain: Roxicodone 2.5-5mg PO Q4hr PRN Anti-emetic 4mg IV Q4hr Cefazolin 2gm x 3 bags DVT prophylaxis- SCDs and Xarelto Urinary catheter for comfort, immobility, and strict I&Os (2) Hypertension: Code(s): I10 - Essential (primary) hypertension Status: Chronic Assessment and Plan: Current blood pressure 125/69 Continue home amlodipine 10mg PO daily Trend BP Adjust medications as needed (3) Diabetes: Code(s): E11.9 - Type 2 diabetes mellitus without complications Status: Chronic Assessment and Plan: Glucose on labs 108 Accu-Cheks AC and HS. A1c 6.9 Initiate SSI Trend labs Adjust medications as needed. (4) UTI (urinary tract infection): Code(s): N39.0 - Urinary tract infection, site not specified Status: Acute Assessment and Plan: Reported that patient had a recent UTI that was being treated with Cipro 250mg PO BID Patient seems better today with conversation and is not pulling off her clothes UA shows trace leukocyte esterase, white blood cells 10-15, trace bacteria, rare mucus Urine culture found Buffy glabrata, will repeat Levofloxcin 750mg Q48hr IV Dose #2 deescalate antibiotics with culture results strict I&Os (5) Acute metabolic encephalopathy: Code(s): G93.41 - Metabolic encephalopathy Status: Acute Assessment and Plan: Seems to be slowly improving since being on antibiotics Head CT: Showed chronic age related changes Probably from UTI Trend symptoms for improvement Subjective Date/time seen: 03/08/21 08:30 Interval history: Patient is an 85-year-old female who is here for a left hip repair. Patient seems a lot better today she is more coherent and alert and oriented. She states that she feels pretty good she is just tired. She said she had issues with pain last night however went away and she feels okay today. She can tell me why she is here, where she is at, what happened to her, and why she is visiting this area. This a lot better than she has been in a few days. She denies chest pain, shortness of breath, sweats, fevers, chills, nausea, vomiting, abdominal pain. She does have good maintenance groundman bilaterally and she can move her toes with good pulses in all extremities. Review of Systems Review of Systems: All systems reviewed & are unremarkable except as noted in HPI and below Exam Const: General: cooperative, healthy appearing, comfortable, no acute distress, well developed, alert and tired appearing Nutritional Appearance: average body habitus and well nourished Orientation/consciousness: oriented to person, oriented to place, oriented to time and patient oriented x3 Limitations: physical limitations HENMT: Head: normal to inspection, No palpable skull fracture present, normocephalic and atraumatic Ears: hearing grossly normal bilaterally and external ears normal General nose exam: Normal external nose present and Normal nares present Eyes: General: appearance normal, both eyes and all related structures Alignment and Position: alignment normal Periorbital: periorbital findings normal Eyelids: eyelids normal Conjunctivae: conjunctivae normal Sclera: sclerae normal Cornea: corneas normal Pupils: Equal, round and reactive pupils present (Right people slightly smaller than left) EOM: EOMs intact bilaterally Neck: Neck: normal visual inspection, full ROM, no lymphadenopathy, trachea midline and supple Chest: Chest palpation & inspection: normal inspection of the chest Resp: Effort & Inspection: normal respiratory effor
--- NOTE | 2021-03-08 12:42 | PM.PNCARD ---
Progress Note: A&P Additional Plan no cardiovascular complications of surgery. Patient was seen preoperatively for risk assessment. In this setting cardiology will sign off please call if our input is necessary. Imer Forde MD [facility] Subjective Date/time seen: date of service:03/08/21 12:42 Interval history: Follow-up visit in this 85-year-old woman with: Admitted with fall and hip fracture. Patient was seen prior to surgery by my partner for preoperative risk assessment. No cardiovascular complaints or issues in the perioperative setting Exam Const: General: comfortable and no acute distress Neck: Neck: supple and no JVD Carotids: bruit Resp: Effort & Inspection: normal respiratory effort Auscultation: clear to auscultation bilaterally Cardio: Rate: regular rate Rhythm: regular rhythm GI: GI Palp: Yes Soft to palpation Auscultation: normal bowel sounds Neuro: Cognition (Neuro): normal cognition Extrem: General: normal to inspection Objective Data Vital Signs Vital Signs: Vital Signs - 24 hr 03/07/21 14:08 03/07/21 16:00 03/07/21 17:52 Temperature 36.6 C 36.4 C Pulse Rate 95 103 H 99 Respiratory Rate 14 14 Blood Pressure 128/60 120/48 L Pulse Oximetry 97 95 03/07/21 20:00 03/07/21 21:03 03/08/21 00:00 Temperature 36.6 C Pulse Rate 88 91 87 Respiratory Rate 20 Blood Pressure 117/51 L Pulse Oximetry 99 03/08/21 00:57 03/08/21 04:00 03/08/21 05:55 Temperature 36.7 C 36.2 C L Pulse Rate 86 97 56 L Respiratory Rate 20 20 Blood Pressure 146/50 H 125/69 Pulse Oximetry 98 100 03/08/21 11:06 Temperature 36.6 C Pulse Rate 79 Respiratory Rate 14 Blood Pressure 122/51 L Pulse Oximetry 100 Intake/Output Intake/Output: Intake & Output 03/05/21 03/06/21 03/07/21 03/08/21 23:59 23:59 23:59 23:59 Intake Total 100 1300 4400 240 Output Total 2500 1700 1000 Balance 100 -1200 2700 -760 Meds/Results Medications: Active Medications Generic Name Dose Route Start Last Admin Trade Name Freq PRN Reason Stop Dose Admin Acetaminophen 1,000 mg 03/07/21 17:12 03/07/21 23:51 Acetaminophen 500 Mg Tablet PO 1,000 mg Q6H PRN Administration Mild Pain (1-3) or Fever Amlodipine Besylate 10 mg 03/06/21 09:00 03/08/21 08:53 Amlodipine Besylate 5 Mg Tablet PO 10 mg DAILY RONNY Administration Dextrose 12.5 gm 03/05/21 17:49 Dextrose 50% 25 Gm/50 Ml Syringe IV PUSH PRN PRN Hypoglycemia Protocol Docusate Sodium 100 mg 03/07/21 09:00 03/08/21 08:53 Docusate Sodium 100 Mg Capsule PO 100 mg BID RONNY Administration Escitalopram Oxalate 5 mg 03/06/21 09:00 03/08/21 08:53 Escitalopram Oxalate 5 Mg Tablet PO 5 mg DAILY RONNY Administration Fentanyl Citrate 25 mcg 03/06/21 13:37 03/06/21 18:39 Fentanyl Citrate Inj (*Crx) 100 Mcg/2 Ml Vial IV PUSH 25 mcg Q2M PRN Administration Pain Glucagon 1 mg 03/05/21 17:49 Glucagon For Inj 1 Mg Vial IM PRN PRN Hypoglycemia Protocol Glucose 15 gm 03/05/21 17:49 Glucose Oral Gel 15 Gm Of Glucse In 37.5 Gm Tube PO PRN PRN Hypoglycemia Protocol Dextrose 1,000 mls @ 100 mls/hr 03/05/21 17:49 Dextrose 5% 1,000 Ml IVPB PRN PRN Hypoglycemia Protocol Levofloxacin/Dextrose 750 mg in 150 mls @ 100 mls/hr 03/06/21 09:00 03/08/21 11:40 Levaquin 750 Mg/D5w 150 Ml IVPB 100 mls/hr Q48HR RONNY Administration Insulin Aspart 2 - 5 units 03/06/21 08:00 03/08/21 09:10 Insulin Aspart (*Bkc) 100 Units/Ml SUB-Q Not Given TID[facility] Protocol Magnesium Hydroxide 30 ml 03/06/21 19:31 Magnesium Hydroxide Susp 30 Ml Udc PO BID PRN Constipation Naloxone HCl 0.1 mg 03/06/21 19:31 Naloxone Hcl 0.4 Mg/Ml Vial IV PUSH Q2M PRN Opiate Reversal Ondansetron HCl 4 mg 03/06/21 19:31 Ondansetron Inj 4 Mg/2 Ml Vial IV PUSH Q4H PRN Nausea And Vomiting Oxy
[2021-03-08] MEDS: ACETAMINOPHEN 500 MG TABLET 1000 MG PO (13:03)
[2021-03-08 13:06] LABS: Glucose Point of Care 177 mg/dl (65-105)
[2021-03-08] MEDS: oxyCODONE HCL (*CRX) 2.5 MG TAB IR PO (17:57)
[2021-03-08] MEDS: RIVAROXABAN 10 MG TABLET PO (17:58)
[2021-03-08 18:16] LABS: Glucose Point of Care 117 mg/dl (65-105)
[2021-03-08 21:08] LABS: Glucose Point of Care 145 mg/dl (65-105)
[2021-03-09] VITALS (7 sets, daily range): BP systolic 120–130; BP diastolic 46–59; PULSE 82–95; RESP 18–20; TEMP 36–36.7; O2SAT 100
[2021-03-09 06:01] LABS: Hematocrit 25.8 % (37.0-47.0); Hemoglobin 8.1 g/dL (12.0-15.0); Mean Corpuscular HGB Conc 31.4 g/dl (32-36); Mean Corpuscular Hemoglobin 28.5 pg (26-34); Mean Corpuscular Volume 90.8 fl (80-100); Mean Platelet Volume 9.5 fl (7.4-10.4); Platelet Count Result 220 k/mm3 (150-375); Red Blood Count 2.84 M/mm3 (4.2-5.4); Red Cell Distribution Width 13.2 % (11.5-14.5); White Blood Count 7.9 K/mm3 (4.5-10.0)
[2021-03-09 06:09] LABS: Alanine Aminotransferase 7 U/L (4-35); Alkaline Phosphatase 112 U/L (38-126); Anion Gap 7 mmol/L (8-16); Aspartate Amino Transferase 28 U/L (14-36); Bilirubin,Total 0.7 mg/dL (0.2-1.3); Blood Urea Nitrogen 14 mg/dL (7-17); Calcium 7.9 mg/dL (8.4-10.2); Carbon Dioxide 22 mmol/L (22-30); Chloride 105 mmol/L (98-107); Estimated CRCL calculation 38 ml/min; Estimated Glomerular Filt Rate > 60; Glucose 159 mg/dL (65-110); Potassium 3.5 mmol/L (3.4-5.0); Sodium 134 mmol/L (137-145)
--- NOTE | 2021-03-09 07:14 | PM.DS ---
DS: Admitting Diagnosis Admitting Diagnosis Right hip fracture DS: Discharge Diagnosis Discharge Diagnosis (1) Displaced fracture of right femoral neck: Code(s): S72.001A - Fracture of unspecified part of neck of right femur, initial encounter for closed fracture Status: Acute Assessment and Plan: Patient was found on the floor Hip xray shows fracture Ortho consulted Post op day 1 Pain: Roxicodone 2.5-5mg PO Q4hr PRN Anti-emetic 4mg IV Q4hr Cefazolin 2gm x 3 bags DVT prophylaxis- SCDs and Xarelto Urinary catheter for comfort, immobility, and strict I&Os (2) Hypertension: Code(s): I10 - Essential (primary) hypertension Status: Chronic Assessment and Plan: Current blood pressure 130/57 Continue home amlodipine 10mg PO daily Trend BP Adjust medications as needed (3) Diabetes: Code(s): E11.9 - Type 2 diabetes mellitus without complications Status: Chronic Assessment and Plan: Glucose on labs 159 Accu-Cheks AC and HS. A1c 6.9 Initiate SSI Trend labs Adjust medications as needed. (4) UTI (urinary tract infection): Code(s): N39.0 - Urinary tract infection, site not specified Status: Acute Assessment and Plan: Reported that patient had a recent UTI that was being treated with Cipro 250mg PO BID Patient seems better today with conversation and is not pulling off her clothes UA shows trace leukocyte esterase, white blood cells 10-15, trace bacteria, rare mucus Urine culture found Buffy glabrata, will repeat Levofloxcin 750mg Q48hr IV Dose #2 deescalate antibiotics with culture results strict I&Os Continue Levaquin 750mg PO Q48hr x 3 doses (5) Acute metabolic encephalopathy: Code(s): G93.41 - Metabolic encephalopathy Status: Acute Assessment and Plan: Seems to be slowly improving since being on antibiotics Head CT: Showed chronic age related changes Probably from UTI Trend symptoms for improvement DS: Summary Hospital Course Reason for hospitalization: Date of service 03/09/2021 at 7:30 a.m. Hospital Course: Patient is a 85-year-old female who presented after a fall and was found to have a right hip fracture. Patient was brought to the hospital after being found on the floor by family member. Orthopedics was consulted and patient went for a right femur repair with Dr. Mendes on 03/06/2021. Patient was evaluated by Cardiology and was found to be a low risk for surgery. Patient also underwent a head CT that showed chronic age-related findings for acute metabolic encephalopathy. Patient's urine was also suspicious for UTI which was a recent finding by the primary care provider. Patient was placed on Levaquin 750 mg Q 48 IV and received 2 doses while inpatient. Patient will need 3 more doses post discharge. Patient was confused with very slurred speech and minimally responsive upon admission. Since IV antibiotic therapy patient has been more responsive and is more lucid and clear with speech. Patient has been working with PT and OT and is progressing according to plan. It is recommended that patient be placed in a SNF for further rehab. Today patient is unchanged. Patient denies chest pain, shortness of breath, sweats, fevers, chills, nausea, vomiting. As previously mentioned patient is much more alert oriented and is able to tell me where she is, why she is in [place], who the president is, and what happened to her. Status at Discharge Functional status at discharge: uses cane/walker Overall status at discharge: patient is progressing back to baseline Time Spent with Patient Time attestation: Total time spent providing and/or coordinating discharge services: 59 minutes Time spent: Greater than 30 minutes Exam Const: General: cooperative, healthy appearing, comfortable, no acute distress, well developed, alert and tired appearing Nutritional Appea
--- NOTE | 2021-03-09 07:14 | P.DS_ITS ---
DS: Admitting Diagnosis Admitting Diagnosis Right hip fracture DS: Discharge Diagnosis Discharge Diagnosis (1) Displaced fracture of right femoral neck: Code(s): S72.001A - Fracture of unspecified part of neck of right femur, initial encounter for closed fracture Status: Acute Assessment and Plan: * Patient was found on the floor * Hip xray shows fracture * Ortho consulted * Post op day 1 * Pain: Roxicodone 2.5-5mg PO Q4hr PRN * Anti-emetic 4mg IV Q4hr * Cefazolin 2gm x 3 bags * DVT prophylaxis- SCDs and Xarelto * Urinary catheter for comfort, immobility, and strict I&Os (2) Hypertension: Code(s): I10 - Essential (primary) hypertension Status: Chronic Assessment and Plan: * Current blood pressure 130/57 * Continue home amlodipine 10mg PO daily * Trend BP * Adjust medications as needed (3) Diabetes: Code(s): E11.9 - Type 2 diabetes mellitus without complications Status: Chronic Assessment and Plan: * Glucose on labs 159 * Accu-Cheks AC and HS. * A1c 6.9 * Initiate SSI * Trend labs * Adjust medications as needed. (4) UTI (urinary tract infection): Code(s): N39.0 - Urinary tract infection, site not specified Status: Acute Assessment and Plan: * Reported that patient had a recent UTI that was being treated with Cipro 250mg PO BID * Patient seems better today with conversation and is not pulling off her clothes * UA shows trace leukocyte esterase, white blood cells 10-15, trace bacteria, rare mucus * Urine culture found Buffy glabrata, will repeat * Levofloxcin 750mg Q48hr IV Dose #2 * deescalate antibiotics with culture results * strict I&Os Continue Levaquin 750mg PO Q48hr x 3 doses (5) Acute metabolic encephalopathy: Code(s): G93.41 - Metabolic encephalopathy Status: Acute Assessment and Plan: * Seems to be slowly improving since being on antibiotics * Head CT: Showed chronic age related changes * Probably from UTI * Trend symptoms for improvement DS: Summary Hospital Course Reason for hospitalization: Date of service 03/09/2021 at 7:30 a.m. Hospital Course: Patient is a 85-year-old female who presented after a fall and was found to have a right hip fracture. Patient was brought to the hospital after being found on the floor by family member. Orthopedics was consulted and patient went for a right femur repair with Dr. Mendes on 03/06/2021. Patient was evaluated by Cardiology and was found to be a low risk for surgery. Patient also underwent a head CT that showed chronic age-related findings for acute metabolic encephalopathy. Patient's urine was also suspicious for UTI which was a recent finding by the primary care provider. Patient was placed on Levaquin 750 mg Q 48 IV and received 2 doses while inpatient. Patient will need 3 more doses post discharge. Patient was confused with very slurred speech and minimally responsive upon admission. Since IV antibiotic therapy patient has been more responsive and is more lucid and clear with speech. Patient has been working with PT and OT and is progressing according to plan. It is recommended that patient be placed in a SNF for further rehab. Today patient is unchanged. Patient denies chest pain, shortness of breath, sweats, fevers, chills, nausea, vomiting. As previously mentioned patient is much more alert oriented and is able to tell me where she is, why she is in [place], who the president is, and what happened to
[2021-03-09 07:30] LABS: Glucose Point of Care 162 mg/dl (65-105)
[2021-03-09] MEDS: amLODIPine BESYLATE 5 MG TABLET 10 MG PO (08:22)
[2021-03-09] MEDS: ESCITALOPRAM OXALATE 5 MG TABLET PO (08:22)
[2021-03-09] MEDS: DOCUSATE SODIUM 100 MG CAPSULE PO ×2 (08:22→16:12)
--- NOTE | 2021-03-09 10:57 | PCNFU ---
Nutrition Follow-Up Complete: Inadequate Oral as related to hip fx as evidenced by NPO for surgery. Goal:Meet estimated nutritional needs Progressing towards goal. We will continue current goal. Pt current nutrition is Regular with Ensure Compact BID. Last recorded weight is 54.3 kg, no new weight to report. Bowel Motility:No BM to report. Labs Reviewed:Alb 3.0,Hct 25.8,Hgb 8.1, Na 134 Meds Noted:Norvasc,Lexapro, Sublimaze,Levaquin, Xarelto. Additional Notes: Nutrition follow up. Patient seen today states to eating a good breakfast, 50-75% of meals. Today for breakfast toast, sausage, coffee and OJ x 2. Patient continues to receive ensure compact but would like to change to ensure Enlive strawberry. Agree with diet orders. Monitoring: Will monitor every 5 days.
[2021-03-09 12:35] LABS: Glucose Point of Care 120 mg/dl (65-105)
--- NOTE | 2021-03-09 12:37 | P.PNIM_ITS ---
Progress Note: A&P Assessment and Plan (1) Displaced fracture of right femoral neck: Code(s): S72.001A - Fracture of unspecified part of neck of right femur, initial encounter for closed fracture Status: Acute Assessment and Plan: * Patient was found on the floor * Hip xray shows fracture * Ortho consulted * Post op day 3 * Pain: Roxicodone 2.5-5mg PO Q4hr PRN * Anti-emetic 4mg IV Q4hr * Cefazolin 2gm x 3 bags * DVT prophylaxis- SCDs and Xarelto (2) Hypertension: Code(s): I10 - Essential (primary) hypertension Status: Chronic Assessment and Plan: * Current blood pressure 122/54 * Continue home amlodipine 10mg PO daily * Trend BP * Adjust medications as needed (3) Diabetes: Code(s): E11.9 - Type 2 diabetes mellitus without complications Status: Chronic Assessment and Plan: * Glucose on labs 159 * Accu-Cheks AC and HS. * A1c 6.9 * Initiate SSI * Trend labs * Adjust medications as needed. (4) UTI (urinary tract infection): Code(s): N39.0 - Urinary tract infection, site not specified Status: Acute Assessment and Plan: * Reported that patient had a recent UTI that was being treated with Cipro 250mg PO BID * Patient seems better today with conversation and is not pulling off her clothes * UA shows trace leukocyte esterase, white blood cells 10-15, trace bacteria, rare mucus * Urine culture found Buffy glabrata, will repeat * Levofloxcin 750mg Q48hr IV Dose #2 * deescalate antibiotics with culture results * strict I&Os Continue Levaquin 750mg PO Q48hr x 3 doses (5) Acute metabolic encephalopathy: Code(s): G93.41 - Metabolic encephalopathy Status: Acute Assessment and Plan: * very big difference today * Seems to be slowly improving since being on antibiotics * Head CT: Showed chronic age related changes * Probably from UTI * Trend symptoms for improvement Time Spent With Patient Time with patient: Greater than 35 minutes Subjective Date/time seen: 03/09/21 12:37 Interval history: Patient is an 85 year old female that presented after a fall and had a left hip repair. She stated that she is doing better today. She also looks better today, and is sitting up in bed with her eyes wide open. She was able to tell me where she is, why she is here, the president, and who is getting soon. She denies chest pain shortness of breath, nausea, vomiting, urinary dysfunction. Patient looks better than she has since admission. She is actually up and able to look at me. She was very talkative and clear when talking to me. She was also understandable and made since. Review of Systems Review of Systems: All systems reviewed & are unremarkable except as noted in HPI and below Exam Const: General: cooperative, healthy appearing, comfortable, no acute distress, well developed, alert, awake and Physically active Nutritional Appearance: average body habitus and well nourished Orientation/consciousness: oriented to person, oriented to place, oriented to time and patient oriented x3 Limitations: physical limitations HENMT: Head: normal to inspection, No palpable skull fracture present, normocephalic and atraumatic Ears: hearing grossly normal bilaterally and external ears normal General nose exam: Normal external nose present and Normal nares present Eyes: General: appearance no
--- NOTE | 2021-03-09 12:37 | PM.IMPN ---
Progress Note: A&P Assessment and Plan (1) Displaced fracture of right femoral neck: Code(s): S72.001A - Fracture of unspecified part of neck of right femur, initial encounter for closed fracture Status: Acute Assessment and Plan: Patient was found on the floor Hip xray shows fracture Ortho consulted Post op day 3 Pain: Roxicodone 2.5-5mg PO Q4hr PRN Anti-emetic 4mg IV Q4hr Cefazolin 2gm x 3 bags DVT prophylaxis- SCDs and Xarelto (2) Hypertension: Code(s): I10 - Essential (primary) hypertension Status: Chronic Assessment and Plan: Current blood pressure 122/54 Continue home amlodipine 10mg PO daily Trend BP Adjust medications as needed (3) Diabetes: Code(s): E11.9 - Type 2 diabetes mellitus without complications Status: Chronic Assessment and Plan: Glucose on labs 159 Accu-Cheks AC and HS. A1c 6.9 Initiate SSI Trend labs Adjust medications as needed. (4) UTI (urinary tract infection): Code(s): N39.0 - Urinary tract infection, site not specified Status: Acute Assessment and Plan: Reported that patient had a recent UTI that was being treated with Cipro 250mg PO BID Patient seems better today with conversation and is not pulling off her clothes UA shows trace leukocyte esterase, white blood cells 10-15, trace bacteria, rare mucus Urine culture found Buffy glabrata, will repeat Levofloxcin 750mg Q48hr IV Dose #2 deescalate antibiotics with culture results strict I&Os Continue Levaquin 750mg PO Q48hr x 3 doses (5) Acute metabolic encephalopathy: Code(s): G93.41 - Metabolic encephalopathy Status: Acute Assessment and Plan: very big difference today Seems to be slowly improving since being on antibiotics Head CT: Showed chronic age related changes Probably from UTI Trend symptoms for improvement Time Spent With Patient Time with patient: Greater than 35 minutes Subjective Date/time seen: 03/09/21 12:37 Interval history: Patient is an 85 year old female that presented after a fall and had a left hip repair. She stated that she is doing better today. She also looks better today, and is sitting up in bed with her eyes wide open. She was able to tell me where she is, why she is here, the president, and who is getting soon. She denies chest pain shortness of breath, nausea, vomiting, urinary dysfunction. Patient looks better than she has since admission. She is actually up and able to look at me. She was very talkative and clear when talking to me. She was also understandable and made since. Review of Systems Review of Systems: All systems reviewed & are unremarkable except as noted in HPI and below Exam Const: General: cooperative, healthy appearing, comfortable, no acute distress, well developed, alert, awake and Physically active Nutritional Appearance: average body habitus and well nourished Orientation/consciousness: oriented to person, oriented to place, oriented to time and patient oriented x3 Limitations: physical limitations HENMT: Head: normal to inspection, No palpable skull fracture present, normocephalic and atraumatic Ears: hearing grossly normal bilaterally and external ears normal General nose exam: Normal external nose present and Normal nares present Eyes: General: appearance normal, both eyes and all related structures Alignment and Position: alignment normal Periorbital: periorbital findings normal Eyelids: eyelids normal Conjunctivae: conjunctivae normal Sclera: sclerae normal Cornea: corneas normal Pupils: Equal, round and reactive pupils present EOM: EOMs intact bilaterally Neck: Neck: normal visual inspection, full ROM, no lymphadenopathy, trachea midline and supple Chest: Chest palpation & inspection: normal inspection of the chest Resp: Effort & Inspection: normal respiratory effort Auscultati
--- NOTE | 2021-03-09 12:43 | PM.PNORT ---
Progress Note: A&P Assessment and Plan (1) Displaced fracture of right femoral neck: Code(s): S72.001A - Fracture of unspecified part of neck of right femur, initial encounter for closed fracture Status: Acute Assessment and Plan: Postoperative day 3 status post bipolar hemiarthroplasty. Radiographs satisfactory. Pain well controlled. Continue formal physical therapy weightbearing as tolerated. VTE prophylaxis with Xarelto. Limit narcotics. Anticipate several weeks of rehab. Patient okay for discharge from Ortho standpoint. Orthopedic Instructions D/C to SNF/rehab Xray in 2 weeks. f/u in office in 4-6 weeks. Wound Care: Remove Mepilex dressing at 7 days post op. Remove steristrips at 14 days post op. May shower. No soaking. PT: WBAT DVT prophylaxis: continue Xarelto for 30 days Pain medication: Tylenol for pain Subjective Subjective Date/Time Seen: 03/09/21 12:43 Resting comfortably in bed. No distress. Less agitated in appearance. No pain at rest. Review of Systems Review of Systems: All systems reviewed & are unremarkable except as noted in HPI and below Exam Narrative: Resting comfortably. Wound nicely dressed. No drainage. Thigh soft. No hematoma or tenderness. Achilles tendon deformity previously noted. Unchanged. No lower extremity edema. Capillary refill brisk. Objective Data Vital Signs Vital Signs: Vital Signs - 24 hr 03/08/21 15:35 03/08/21 16:00 03/08/21 17:45 Temperature 97.3 F L 97.1 F L Pulse Rate 90 81 87 Respiratory Rate 16 14 Blood Pressure 114/52 L 119/45 L Pulse Oximetry 100 100 03/08/21 20:00 03/08/21 22:31 03/09/21 00:00 Temperature 97.3 F L Pulse Rate 92 89 88 Respiratory Rate 18 Blood Pressure 136/68 Pulse Oximetry 99 03/09/21 01:27 03/09/21 04:00 03/09/21 07:22 Temperature 98.0 F 97.5 F L Pulse Rate 90 82 94 Respiratory Rate 20 20 Blood Pressure 130/57 L 125/59 L Pulse Oximetry 100 100 03/09/21 08:00 03/09/21 10:00 Temperature 97.7 F Pulse Rate 95 89 Respiratory Rate 20 Blood Pressure 122/54 L Pulse Oximetry 100 Intake/Output Intake/Output: Intake & Output 08/27/21 08/28/21 08/29/21 08/30/21 23:59 23:59 23:59 23:59 Intake Total 1300 4400 1570 680 Output Total 2500 1700 1000 Balance -1200 2700 570 680 Meds/Results Medications: Active Medications Generic Name Dose Route Start Last Admin Trade Name Freq PRN Reason Stop Dose Admin Acetaminophen 1,000 mg 03/07/21 17:12 03/08/21 13:03 Acetaminophen 500 Mg Tablet PO 1,000 mg Q6H PRN Administration Mild Pain (1-3) or Fever Amlodipine Besylate 10 mg 03/06/21 09:00 03/09/21 08:22 Amlodipine Besylate 5 Mg Tablet PO 10 mg DAILY RONNY Administration Dextrose 12.5 gm 03/05/21 17:49 Dextrose 50% 25 Gm/50 Ml Syringe IV PUSH PRN PRN Hypoglycemia Protocol Docusate Sodium 100 mg 03/07/21 09:00 03/09/21 08:22 Docusate Sodium 100 Mg Capsule PO 100 mg BID RONNY Administration Escitalopram Oxalate 5 mg 03/06/21 09:00 03/09/21 08:22 Escitalopram Oxalate 5 Mg Tablet PO 5 mg DAILY RONNY Administration Fentanyl Citrate 25 mcg 03/06/21 13:37 03/06/21 18:39 Fentanyl Citrate Inj (*Crx) 100 Mcg/2 Ml Vial IV PUSH 25 mcg Q2M PRN Administration Pain Glucagon 1 mg 03/05/21 17:49 Glucagon For Inj 1 Mg Vial IM PRN PRN Hypoglycemia Protocol Glucose 15 gm 03/05/21 17:49 Glucose Oral Gel 15 Gm Of Glucse In 37.5 Gm Tube PO PRN PRN Hypoglycemia Protocol Dextrose 1,000 mls @ 100 mls/hr 03/05/21 17:49 Dextrose 5% 1,000 Ml IVPB PRN PRN Hypoglycemia Protocol Levofloxacin/Dextrose 750 mg in 150 mls @ 100 mls/hr 03/06/21 09:00 03/08/21 13:10 Levaquin 750 Mg/D5w 150 Ml IVPB Infused Q48HR RONNY Infusion Insulin Aspart 2 - 5 units 03/06/21 08:00 03/09/21 12:15 Insulin Aspart (*Bkc) 100 Units/Ml SUB-Q Not
[2021-03-09] MEDS: ACETAMINOPHEN 500 MG TABLET 1000 MG PO (13:41)
[2021-03-09] MEDS: RIVAROXABAN 10 MG TABLET PO (16:12)
[2021-03-09 16:46] LABS: Glucose Point of Care 192 mg/dl (65-105)
[2021-03-09 21:02] LABS: Glucose Point of Care 280 mg/dl (65-105)
[2021-03-10 05:23] VITALS: BP 147/50; PULSE 106; RESP 18; TEMP 37.5; O2SAT 96
[2021-03-10 05:51] LABS: Basophils Percent Auto 0.1 % (0.2-1.2); Eosinophils Absolute Auto 0.1 K/mm3 (0-0.3); Eosinophils Percent Auto 1.2 % (0-4.4); Hematocrit 30.7 % (37.0-47.0); Hemoglobin 9.6 g/dL (12.0-15.0); Immature Granulocyte Absolute 0.04 K/mm3 (0.00-0.031); Immature Granulocyte Percent A 0.5 % (0-0.5); Lymphocytes Absolute Auto 0.48 K/mm3 (0.9-3.2); Lymphocytes Percent Auto 5.9 % (18.3-44.2); Mean Corpuscular HGB Conc 31.3 g/dl (32-36); Mean Corpuscular Hemoglobin 28.1 pg (26-34); Mean Corpuscular Volume 89.8 fl (80-100); Mean Platelet Volume 9.5 fl (7.4-10.4); Monocytes Absolute Auto 0.5 K/mm3 (0.1-0.6); Monocytes Percent Auto 5.8 % (2.6-8.5); Neutrophils Percent Auto 86.5 % (45.5-73.1); Platelet Count Result 244 k/mm3 (150-375); Red Blood Count 3.42 M/mm3 (4.2-5.4); Red Cell Distribution Width 13.2 % (11.5-14.5); White Blood Count 8.1 K/mm3 (4.5-10.0)
[2021-03-10 06:13] LABS: Alanine Aminotransferase 11 U/L (4-35); Albumin Level 3.6 g/dL (3.5-5.1); Alkaline Phosphatase 140 U/L (38-126); Anion Gap 8 mmol/L (8-16); Aspartate Amino Transferase 40 U/L (14-36); Bilirubin,Total 0.9 mg/dL (0.2-1.3); Blood Urea Nitrogen 14 mg/dL (7-17); Calcium 8.5 mg/dL (8.4-10.2); Carbon Dioxide 23 mmol/L (22-30); Chloride 105 mmol/L (98-107); Estimated CRCL calculation 50 ml/min; Estimated Glomerular Filt Rate > 60; Glucose 191 mg/dL (65-110); Potassium 3.8 mmol/L (3.4-5.0); Sodium 136 mmol/L (137-145)
[2021-03-10] MEDS: ESCITALOPRAM OXALATE 5 MG TABLET PO (08:17)
[2021-03-10] MEDS: DOCUSATE SODIUM 100 MG CAPSULE PO ×2 (08:17→17:23)
[2021-03-10] MEDS: amLODIPine BESYLATE 5 MG TABLET 10 MG PO (08:17)
[2021-03-10 08:25] LABS: Glucose Point of Care 176 mg/dl (65-105)
--- NOTE | 2021-03-10 09:35 | PCOTNOTE ---
Attempted to see patient this am, however patient refused stating, No. Maybe tomorrow. Educated patient on importance of therapy. Encouraged patient to participate in therapy today. Pt replied, Well, maybe later, but not right now.
[2021-03-10 10:00] VITALS: BP 99/49; PULSE 104; RESP 20; TEMP 36.4; O2SAT 100
--- NOTE | 2021-03-10 11:52 | P.PNIM_ITS ---
Progress Note: A&P Assessment and Plan (1) Discharge planning issues: Code(s): Z02.9 - Encounter for administrative examinations, unspecified Status: Acute Assessment and Plan: * Patient ok to DC from Orthos point of view * Only has [place] medicaid and just got out of rehab right before coming * Patient is to DC to daughters house with home health and caregiver * Family needed one more day (2) Displaced fracture of right femoral neck: Code(s): S72.001A - Fracture of unspecified part of neck of right femur, initial encounter for closed fracture Status: Acute Assessment and Plan: * Patient was found on the floor * Hip xray shows fracture * Ortho consulted * Post op day 4 * Pain: Roxicodone 2.5-5mg PO Q4hr PRN * Anti-emetic 4mg IV Q4hr * Cefazolin 2gm x 3 bags * DVT prophylaxis- SCDs and Xarelto (3) Hypertension: Code(s): I10 - Essential (primary) hypertension Status: Chronic Assessment and Plan: * Current blood pressure 122/54 * Continue home amlodipine 10mg PO daily * Trend BP * Adjust medications as needed (4) Diabetes: Code(s): E11.9 - Type 2 diabetes mellitus without complications Status: Chronic Assessment and Plan: * Glucose on labs 159 * Accu-Cheks AC and HS. * A1c 6.9 * Initiate SSI * Trend labs * Adjust medications as needed. (5) UTI (urinary tract infection): Code(s): N39.0 - Urinary tract infection, site not specified Status: Acute Assessment and Plan: * Reported that patient had a recent UTI that was being treated with Cipro 250mg PO BID * Patient seems better today with conversation and is not pulling off her clothes * UA shows trace leukocyte esterase, white blood cells 10-15, trace bacteria, rare mucus * Urine culture found Buffy glabrata, will repeat * Levofloxcin 750mg Q48hr IV Dose #2 * deescalate antibiotics with culture results * strict I&Os Continue Levaquin 750mg PO Q48hr x 3 doses (6) Acute metabolic encephalopathy: Code(s): G93.41 - Metabolic encephalopathy Status: Acute Assessment and Plan: * very big difference today * Seems to be slowly improving since being on antibiotics * could be some delirium and/or pain * will repeat head CT to ensure that there is no acute issues. * Probably from UTI * Trend symptoms for improvement Subjective Date/time seen: 03/10/21 07:20 Interval history: Patient is an 85-year-old female who is here for a fall and post hip repair. Today patient seems a little confused however she was able to answer all the orientation questions including why she was here. She also knew the year the president. Patient stated that she was having a little bit of pain that she rated about a 4/10 however she stated Tylenol is helping. She stated that her pain is in her hip and radiates to her groin area. She denies chest pain, shortness of breath, nausea, vomiting, weakness, fatigue, fevers, sweats, and chills. Review of Systems Review of Systems: All systems reviewed & are unremarkable except as noted in HPI and below Exam Const: General: cooperative, healthy appearing, comfortable, no acute distress, well developed, alert, awake, Physically active and confusion Nutritional Appearance: average body habitus and well nourished Orientation/consciousness: oriented to person, oriented to place, oriented to time, p
--- NOTE | 2021-03-10 11:52 | PM.IMPN ---
Progress Note: A&P Assessment and Plan (1) Discharge planning issues: Code(s): Z02.9 - Encounter for administrative examinations, unspecified Status: Acute Assessment and Plan: Patient ok to DC from Orthos point of view Only has [place] medicaid and just got out of rehab right before coming Patient is to DC to daughters house with home health and caregiver Family needed one more day (2) Displaced fracture of right femoral neck: Code(s): S72.001A - Fracture of unspecified part of neck of right femur, initial encounter for closed fracture Status: Acute Assessment and Plan: Patient was found on the floor Hip xray shows fracture Ortho consulted Post op day 4 Pain: Roxicodone 2.5-5mg PO Q4hr PRN Anti-emetic 4mg IV Q4hr Cefazolin 2gm x 3 bags DVT prophylaxis- SCDs and Xarelto (3) Hypertension: Code(s): I10 - Essential (primary) hypertension Status: Chronic Assessment and Plan: Current blood pressure 122/54 Continue home amlodipine 10mg PO daily Trend BP Adjust medications as needed (4) Diabetes: Code(s): E11.9 - Type 2 diabetes mellitus without complications Status: Chronic Assessment and Plan: Glucose on labs 159 Accu-Cheks AC and HS. A1c 6.9 Initiate SSI Trend labs Adjust medications as needed. (5) UTI (urinary tract infection): Code(s): N39.0 - Urinary tract infection, site not specified Status: Acute Assessment and Plan: Reported that patient had a recent UTI that was being treated with Cipro 250mg PO BID Patient seems better today with conversation and is not pulling off her clothes UA shows trace leukocyte esterase, white blood cells 10-15, trace bacteria, rare mucus Urine culture found Buffy glabrata, will repeat Levofloxcin 750mg Q48hr IV Dose #2 deescalate antibiotics with culture results strict I&Os Continue Levaquin 750mg PO Q48hr x 3 doses (6) Acute metabolic encephalopathy: Code(s): G93.41 - Metabolic encephalopathy Status: Acute Assessment and Plan: very big difference today Seems to be slowly improving since being on antibiotics could be some delirium and/or pain will repeat head CT to ensure that there is no acute issues. Probably from UTI Trend symptoms for improvement Subjective Date/time seen: 03/10/21 07:20 Interval history: Patient is an 85-year-old female who is here for a fall and post hip repair. Today patient seems a little confused however she was able to answer all the orientation questions including why she was here. She also knew the year the president. Patient stated that she was having a little bit of pain that she rated about a 4/10 however she stated Tylenol is helping. She stated that her pain is in her hip and radiates to her groin area. She denies chest pain, shortness of breath, nausea, vomiting, weakness, fatigue, fevers, sweats, and chills. Review of Systems Review of Systems: All systems reviewed & are unremarkable except as noted in HPI and below Exam Const: General: cooperative, healthy appearing, comfortable, no acute distress, well developed, alert, awake, Physically active and confusion Nutritional Appearance: average body habitus and well nourished Orientation/consciousness: oriented to person, oriented to place, oriented to time, patient oriented x3 and confusion Limitations: physical limitations HENMT: Head: normal to inspection, No palpable skull fracture present, normocephalic and atraumatic Ears: hearing grossly normal bilaterally and external ears normal General nose exam: Normal external nose present and Normal nares present Eyes: General: appearance normal, both eyes and all related structures Alignment and Position: alignment normal Periorbital: periorbital findings normal Eyelids: eyelids normal Conjunctivae: conjunctivae normal Sclera: sclerae normal
--- NOTE | 2021-03-10 12:15 | PC.NURSE ---
Pt's mental status has declined rapidly throughout the morning; pt needs continuous redirection as she is states that she is in the , needs to go to work, et al.; pt is engaged in auditory and visual hallucinations including but not limited to having full conversations with persons not in existence or present in the room; pt has become non-compliant refusing to have glucose tested prior to lunch; pt is becoming more argumentative including but not limited to stating multiple staff members are liars. You just don't want to help me. ; hospitalist notified of pt's worsening mental status; will continue to monitor.
--- NOTE | 2021-03-10 12:26 | PC.NURSE ---
On 03/10/21, the student, Clair Garcia, provided care and completed [facility] documentation on this patient. I have reviewed the student's documentation and agree with the findings.
--- NOTE | 2021-03-10 13:37 | PM.PNORT ---
Progress Note: A&P Assessment and Plan (1) Displaced fracture of right femoral neck: Code(s): S72.001A - Fracture of unspecified part of neck of right femur, initial encounter for closed fracture Status: Acute Assessment and Plan: Postoperative day 4 status post bipolar hemiarthroplasty. Radiographs satisfactory. Pain well controlled. Continue formal physical therapy weightbearing as tolerated. VTE prophylaxis with Xarelto. Limit narcotics. Patient okay for discharge from Ortho standpoint. Orthopedic Instructions: Date of Surgery 03/06/21 D/C to home with home health. Arrangements are in progress for someone to be staying with her. She will be returning to [place] after attending a wedding in a few weeks. Plan for her to be see in office prior to returning to [place]. Please call the office [phone] to schedule appointment. Wound Care: Remove Mepilex dressing at 7 days post op. Remove steristrips at 14 days post op. May shower. No soaking. PT: WBAT DVT prophylaxis: continue Xarelto for 30 days Pain medication: Tylenol for pain Subjective Subjective Date/Time Seen: 03/10/21 13:37 Patient resting comfortably in bed. Sitting up and eating. Patient knows where she is, but confused on date. No pain in her hip at this time. No numbness or tingling distally. Review of Systems Review of Systems: All systems reviewed & are unremarkable except as noted in HPI and below Exam Narrative: Resting comfortably. Wound nicely dressed. No drainage. Thigh soft. No hematoma or tenderness. Achilles tendon deformity previously noted. Unchanged. No lower extremity edema. Capillary refill brisk. Objective Data Vital Signs Vital Signs: Vital Signs - 24 hr 03/09/21 21:12 03/10/21 05:23 03/10/21 10:00 Temperature 96.8 F L 99.5 F 97.6 F Pulse Rate 89 106 H 104 H Respiratory Rate 18 18 20 Blood Pressure 120/46 L 147/50 H 99/49 L Pulse Oximetry 100 96 100 Intake/Output Intake/Output: Intake & Output 03/07/21 03/08/21 03/09/21 03/10/21 23:59 23:59 23:59 23:59 Intake Total 4400 1570 1962 670 Output Total 1700 1000 520 Balance 2700 570 1442 670 Meds/Results Medications: Active Medications Generic Name Dose Route Start Last Admin Trade Name Eliseo PRN Reason Stop Dose Admin Acetaminophen 1,000 mg 03/07/21 17:12 03/09/21 13:41 Acetaminophen 500 Mg Tablet PO 1,000 mg Q6H PRN Administration Mild Pain (1-3) or Fever Amlodipine Besylate 10 mg 03/06/21 09:00 03/10/21 08:17 Amlodipine Besylate 5 Mg Tablet PO 10 mg DAILY RONNY Administration Dextrose 12.5 gm 03/05/21 17:49 Dextrose 50% 25 Gm/50 Ml Syringe IV PUSH PRN PRN Hypoglycemia Protocol Docusate Sodium 100 mg 03/07/21 09:00 03/10/21 08:17 Docusate Sodium 100 Mg Capsule PO 100 mg BID RONNY Administration Escitalopram Oxalate 5 mg 03/06/21 09:00 03/10/21 08:17 Escitalopram Oxalate 5 Mg Tablet PO 5 mg DAILY RONNY Administration Fentanyl Citrate 25 mcg 03/06/21 13:37 03/06/21 18:39 Fentanyl Citrate Inj (*Crx) 100 Mcg/2 Ml Vial IV PUSH 25 mcg Q2M PRN Administration Pain Glucagon 1 mg 03/05/21 17:49 Glucagon For Inj 1 Mg Vial IM PRN PRN Hypoglycemia Protocol Glucose 15 gm 03/05/21 17:49 Glucose Oral Gel 15 Gm Of Glucse In 37.5 Gm Tube PO PRN PRN Hypoglycemia Protocol Dextrose 1,000 mls @ 100 mls/hr 03/05/21 17:49 Dextrose 5% 1,000 Ml IVPB PRN PRN Hypoglycemia Protocol Levofloxacin/Dextrose 750 mg in 150 mls @ 100 mls/hr 03/06/21 09:00 03/10/21 08:17 Levaquin 750 Mg/D5w 150 Ml IVPB 100 mls/hr Q48HR RONNY Administration Insulin Aspart 2 - 5 units 03/06/21 08:00 03/10/21 12:26 Insulin Aspart (*Bkc) 100 Units/Ml SUB-Q Not Given TIDWM RONNY Protocol Ketorolac Tromethamine 15 mg 03/10/21 13:36 Ketorolac 15 Mg/Ml Vial (*Bkc) IV PUSH 03/10/21 13:37 ONCE ONE
[2021-03-10 14:00] VITALS: BP 114/50; PULSE 90; RESP 20; TEMP 36.7; O2SAT 100
[2021-03-10] MEDS: KETOROLAC 15 MG/ML VIAL (*BKC) IV PUSH (14:08)
[2021-03-10 17:20] LABS: Glucose Point of Care 238 mg/dl (65-105)
[2021-03-10] MEDS: INSULIN ASPART (*BKC) 100 UNITS/ML SUB-Q (17:21)
[2021-03-10] MEDS: RIVAROXABAN 10 MG TABLET PO (17:24)
[2021-03-10 20:00] VITALS: PULSE 106; RESP 21; O2SAT 100
[2021-03-10 21:23] LABS: Glucose Point of Care 246 mg/dl (65-105)
[2021-03-10 22:00] VITALS: BP 108/41; PULSE 106; RESP 21; TEMP 36.4; O2SAT 100
[2021-03-11] VITALS (8 sets, daily range): BP systolic 93–126; BP diastolic 43–75; PULSE 93–106; RESP 16–20; TEMP 36.2–37.2; O2SAT 98–100
[2021-03-11] MEDS: ESCITALOPRAM OXALATE 5 MG TABLET PO (09:10)
[2021-03-11] MEDS: amLODIPine BESYLATE 5 MG TABLET 10 MG PO (09:10)
[2021-03-11] MEDS: DOCUSATE SODIUM 100 MG CAPSULE PO ×2 (09:10→17:15)
[2021-03-11 09:17] LABS: Glucose Point of Care 166 mg/dl (65-105)
--- NOTE | 2021-03-11 11:40 | ECG_ITS ---
Measurements Intervals [place] Rate: 92 P: 51 MS: 125 QRS: 58 QRSD: 93 T: 48 QT: 357 QTc: 443 Interpretive Statements SINUS RHYTHM BASELINE ARTIFACT- I, II, III, AVR, AVL, AVF, V1-V2 NORMAL ECG Electronically Signed On 03-11-2021 12:08:02 CDT by Justin Phillips D.O.
[2021-03-11 11:50] LABS: Glucose Point of Care 249 mg/dl (65-105)
[2021-03-11] MEDS: SODIUM CHLORIDE 0.9% IV 1,000 ML 999 ML IV CONT (12:15)
--- NOTE | 2021-03-11 12:17 | PM.IMPN ---
Progress Note: A&P Assessment and Plan (1) Hypotension: Code(s): I95.9 - Hypotension, unspecified Status: Acute Assessment and Plan: patient's blood pressure was 93/61 today and she was somnolent but arousable - no signs of PE, blood loss, ACS,or chest pain - urine culture growing 100,000 Buffy which could be a contaminant since she had moderate squamous cells on her UA. Will get a catheterized urine - blood cultures on admission are negative. She has been afebrile with normal white blood cell count. No systemic infection suspected at this time. - she was given amlodipine this morning which could be worsening her hypotension. Will bolus 250 cc of fluid and recheck blood pressure - hold discharge, family notified by care coordination (2) Sinus tachycardia: Code(s): R00.0 - Tachycardia, unspecified Status: Acute Assessment and Plan: could be due to above - EKG shows a heart rate of 93 currently - no signs of PE, no shortness of breath and oxygen saturation 100% - monitor (3) Discharge planning issues: Code(s): Z02.9 - Encounter for administrative examinations, unspecified Status: Acute Assessment and Plan: unable to discharge to SNF - will discharge to home health (4) Displaced fracture of right femoral neck: Code(s): S72.001A - Fracture of unspecified part of neck of right femur, initial encounter for closed fracture Status: Acute Assessment and Plan: Post op day 5 of Bipolar hemiarthroplasty, right hip - will stop antibiotics, patient is tolerating pain with Tylenol - she was given Cefazolin 2gm x 3 bags -DVT prophylaxis- SCDs and Xarelto (5) Hypertension: Code(s): I10 - Essential (primary) hypertension Status: Chronic Assessment and Plan: hold amlodipine as above (6) Diabetes: Code(s): E11.9 - Type 2 diabetes mellitus without complications Status: Chronic Assessment and Plan: last glucose 249 - hold home Jardiance -A1c 6.9 - continue SSI (7) UTI (urinary tract infection): Code(s): N39.0 - Urinary tract infection, site not specified Status: Acute Assessment and Plan: Reported that patient had a recent UTI that was being treated with Cipro 250mg PO BID - as above, will repeat UA but do catheterized urine to minimize contamination -Urine culture found Buffy glabrata, could be due to contamination or true infection. Will repeat UA before initiating antifungal therapy as this is often a contaminant - stop Levaquin (8) Acute metabolic encephalopathy: Code(s): G93.41 - Metabolic encephalopathy Status: Acute Assessment and Plan: slowly improving according to previous provider although I am unsure of the patient's actual baseline - no neurological deficits on exam - will give fluids since the patient is hypotensive and somnolent - head CT 03/05 was negative for acute pathology. No signs of neurological deficits. No repeat needed at this time Time Spent With Patient Time with patient: 25 - 35 minutes Subjective Date/time seen: 03/11/21 12:17 Interval history: Patient is an 85-year-old female who is here for a fall and Hip fracture. patient was seen today and is somnolent but answers most questions. her voice is weak and she keeps falling asleep. She states that she is not in any pain. She specifically denies chest pain, shortness of breath, fevers, Dysuria, chills, nausea or vomiting. She says she does not have any hip pain but also does not remember why she was in the hospital. Review of Systems Review of Systems: All systems reviewed & are unremarkable except as noted in HPI and below Exam Narrative: General: Well developed well nourished patient in NAD HEENT: normocephalic Neck: supple Neuro: Alert and oriented to herself, hospital, and president but not the situation or the date. Cranial nerve
[2021-03-11] MEDS: INSULIN ASPART (*BKC) 100 UNITS/ML SUB-Q (12:18)
[2021-03-11 12:46] LABS: Hematocrit 27.3 % (37.0-47.0); Hemoglobin 8.5 g/dL (12.0-15.0)
[2021-03-11 13:07] LABS: Lactic Acid Reflex 1.6 mmol/L (0.7-2.1)
[2021-03-11 13:09] LABS: Anion Gap 11 mmol/L (8-16); Blood Urea Nitrogen 19 mg/dL (7-17); Calcium 8.4 mg/dL (8.4-10.2); Carbon Dioxide 26 mmol/L (22-30); Chloride 99 mmol/L (98-107); Estimated CRCL calculation 38 ml/min; Estimated Glomerular Filt Rate > 60; Glucose 251 mg/dL (65-110); Potassium 4.1 mmol/L (3.4-5.0); Sodium 136 mmol/L (137-145)
[2021-03-11 14:43] LABS: Alanine Aminotransferase 13 U/L (4-35); Albumin Level 2.8 g/dL (3.5-5.1); Alkaline Phosphatase 115 U/L (38-126); Aspartate Amino Transferase 32 U/L (14-36); Bilirubin,Total 0.7 mg/dL (0.2-1.3)
[2021-03-11 14:43] LABS: Add Urine Microscopic? YES; Appearance Urine Cloudy (Clear); Bacteria Urine 4+ /hpf; Bilirubin Urine Negative (Negative); Blood Urine Negative (Negative); Budding Yeast Urine Present /hpf; Color Urine Yellow (Yellow); Glucose Urine UA 3+ mg/dL (Negative); Ketones Urine Trace mg/dL (Negative); Leukocyte Esterase Ur 3+ LEU/UL (Negative); Nitrate Urine Negative (Negative); Protein Urine 1+ mg/dL (Negative); RBC Urine 21-50 /hpf (0-2); Specific Grav Ur 1.016 (1.001-1.035); Urobilinogen Urine Negative mg/dL (<2.0); WBC Urine >75 /hpf
[2021-03-11 14:57] LABS: CRP 11.7 mg/dL (<1.0)
[2021-03-11] MEDS: RIVAROXABAN 10 MG TABLET PO (17:15)
[2021-03-11] MEDS: AMPICILLIN SULB 1.5 GM/NS 50ML 1.5 GM/50 ML VIAL IVPB ×2 (17:54→23:53)
[2021-03-11 19:10] LABS: Glucose Point of Care 137 mg/dl (65-105)
[2021-03-11 20:19] LABS: Glucose Point of Care 294 mg/dl (65-105)
[2021-03-12] VITALS (8 sets, daily range): BP systolic 84–151; BP diastolic 35–71; PULSE 90–104; RESP 16–20; TEMP 36.3–36.8; O2SAT 97–100
[2021-03-12] MEDS: AMPICILLIN SULB 1.5 GM/NS 50ML 1.5 GM/50 ML VIAL IVPB ×3 (04:54→17:34)
[2021-03-12 05:56] LABS: Hematocrit 25.5 % (37.0-47.0); Hemoglobin 7.8 g/dL (12.0-15.0); Mean Corpuscular HGB Conc 30.6 g/dl (32-36); Mean Corpuscular Hemoglobin 28.3 pg (26-34); Mean Corpuscular Volume 92.4 fl (80-100); Mean Platelet Volume 9.1 fl (7.4-10.4); Platelet Count Result 262 k/mm3 (150-375); Red Blood Count 2.76 M/mm3 (4.2-5.4); Red Cell Distribution Width 13.8 % (11.5-14.5); White Blood Count 6.8 K/mm3 (4.5-10.0)
[2021-03-12 06:07] LABS: Alanine Aminotransferase 12 U/L (4-35); Alkaline Phosphatase 124 U/L (38-126); Anion Gap 12 mmol/L (8-16); Aspartate Amino Transferase 28 U/L (14-36); Bilirubin,Total 0.4 mg/dL (0.2-1.3); Blood Urea Nitrogen 16 mg/dL (7-17); Calcium 8.4 mg/dL (8.4-10.2); Carbon Dioxide 24 mmol/L (22-30); Chloride 103 mmol/L (98-107); Estimated CRCL calculation 43 ml/min; Estimated Glomerular Filt Rate > 60; Glucose 207 mg/dL (65-110); Potassium 3.9 mmol/L (3.4-5.0); Sodium 139 mmol/L (137-145)
[2021-03-12 08:05] LABS: Glucose Point of Care 176 mg/dl (65-105)
[2021-03-12] MEDS: ESCITALOPRAM OXALATE 5 MG TABLET PO (08:24)
[2021-03-12] MEDS: DOCUSATE SODIUM 100 MG CAPSULE PO ×2 (08:24→16:55)
--- NOTE | 2021-03-12 09:59 | PCPTNOTE ---
Attempted to see pt but PA was exiting room and states pt is orthostatic. OT is currently working with the pt and PA requests that PT hold this morning and attempt this afternoon if pt's BP improved.
[2021-03-12] MEDS: FLUCONAZOLE 100 MG TABLET PO (10:00)
--- NOTE | 2021-03-12 10:24 | PM.IMPN ---
Progress Note: A&P Assessment and Plan (1) Orthostatic hypotension: Code(s): I95.1 - Orthostatic hypotension Status: Acute Assessment and Plan: Patient's blood pressures appear to drop when she stands up and she is slightly symptomatic with this -Sriram hose ordered but I do not see any on. I will repeat this order and give her 500 cc of normal saline -amlodipine has been discontinued -no signs of blood loss on exam but H&H is slowly decreasing. Will repeat H&H at noon -monitor daily (2) UTI (urinary tract infection): Code(s): N39.0 - Urinary tract infection, site not specified Status: Acute Assessment and Plan: New UA shows suspicion for UTI -she was on Levaquin but developed this UTI and worsening symptoms so this was stopped. She was put on ceftriaxone and ampicillin to cover Enterococcus. She is more interactive today. -she also had budding yeast on both samples. At 1st I thought this was a contaminant since she had many squamous cells but we got a catheterized urine that was very clean without squamous cells which continues to show budding yeast. Will start fluconazole and monitor cultures. Telemetry ordered to monitor QTC and will obtain EKG tomorrow morning as well (3) Hypotension: Code(s): I95.9 - Hypotension, unspecified Status: Acute Assessment and Plan: Likely multifactorial, improving with abx and fluids - no signs of PE, blood loss, ACS,or chest pain - blood cultures on admission are negative. She has been afebrile with normal white blood cell count. No systemic infection suspected at this time. -amlodipine on hold (4) Sinus tachycardia: Code(s): R00.0 - Tachycardia, unspecified Status: Acute Assessment and Plan: Improving - Tele showing rate 85 but increases when she sits up likely due to bp drop - no signs of PE, no shortness of breath and oxygen saturation 99% - monitor (5) Discharge planning issues: Code(s): Z02.9 - Encounter for administrative examinations, unspecified Status: Acute Assessment and Plan: unable to discharge to SNF - will discharge to home health when appropriate (6) Displaced fracture of right femoral neck: Code(s): S72.001A - Fracture of unspecified part of neck of right femur, initial encounter for closed fracture Status: Acute Assessment and Plan: Post op day 6 of Bipolar hemiarthroplasty, right hip -DVT prophylaxis- SCDs and Xarelto (7) Hypertension: Code(s): I10 - Essential (primary) hypertension Status: Chronic Assessment and Plan: hold amlodipine as above (8) Diabetes: Code(s): E11.9 - Type 2 diabetes mellitus without complications Status: Chronic Assessment and Plan: last glucose 176 - hold home Jardiance -A1c 6.9 - continue SSI (9) UTI (urinary tract infection): Code(s): N39.0 - Urinary tract infection, site not specified Status: Acute Assessment and Plan: as above (10) Acute metabolic encephalopathy: Code(s): G93.41 - Metabolic encephalopathy Status: Acute Assessment and Plan: Improved although I am unsure of the patient's actual baseline - no neurological deficits on exam - head CT 03/05 was negative for acute pathology. No signs of neurological deficits. No repeat needed at this time Subjective Date/time seen: 03/12/21 10:24 Interval history: Patient is an 85-year-old female who is here for a fall and hip fracture. Patient was seen today and more interactive. I saw her with therapy and she was able to get into the chair without issue. She did feel weak during the transfer but was able to follow commands and having interactive conversation. There was some confusion but overall she was doing better. She denied lightheadedness, dizziness, fevers, chills, nausea, vomiting, chest pain or shortness of breath. She says at ti
[2021-03-12] MEDS: SODIUM CHLORIDE 0.9% IV 500 ML 100 ML IV CONT (11:30)
[2021-03-12 12:01] LABS: Hematocrit 27.4 % (37.0-47.0); Hemoglobin 8.1 g/dL (12.0-15.0)
[2021-03-12 12:21] LABS: Glucose Point of Care 278 mg/dl (65-105)
--- NOTE | 2021-03-12 12:21 | PCDIET ---
Nutrition Follow-Up Complete: Inadequate Oral as related to hip fx as evidenced by NPO for surgery. Meet estimated nutritional needs Goal: Goal not met. Continue goal. Pt current nutrition is Regular with [employer] BID Nutrition recommendation: agree Last recorded weight is 54.3 kg, recommend updated wt Bowel Motility: BM 03/09; pt on pain med and getting colace; milk of mg on board as well Labs Reviewed:Hgb/Hct 7.8, 25.5, Alb 3.0, Glucose 207 Meds Noted:Normal Saline, Norvasc, Colace Additional Notes: Pt is on an appropriate diet with additional kcals and protein provided by [employer] which she is drinking. PO intakes on the lower side (40, 25, 25,25). We will continue to monitor for changes in weight and encourage good intake of meals and supplements. Will monitor every 5 days.
[2021-03-12] MEDS: INSULIN ASPART (*BKC) 100 UNITS/ML SUB-Q (12:26)
[2021-03-12] MEDS: RIVAROXABAN 10 MG TABLET PO (16:55)
[2021-03-12 16:58] LABS: Glucose Point of Care 186 mg/dl (65-105)
[2021-03-12 22:02] LABS: Glucose Point of Care 169 mg/dl (65-105)
[2021-03-13] VITALS (8 sets, daily range): BP systolic 126–140; BP diastolic 60–97; PULSE 77–114; RESP 16; TEMP 36.4–36.9; O2SAT 94–97
[2021-03-13] MEDS: AMPICILLIN SULB 1.5 GM/NS 50ML 1.5 GM/50 ML VIAL IVPB ×2 (00:02→06:45)
[2021-03-13 06:05] LABS: Hematocrit 28.1 % (37.0-47.0); Hemoglobin 8.2 g/dL (12.0-15.0); Mean Corpuscular HGB Conc 29.2 g/dl (32-36); Mean Corpuscular Hemoglobin 28.4 pg (26-34); Mean Corpuscular Volume 97.2 fl (80-100); Mean Platelet Volume 9.1 fl (7.4-10.4); Platelet Count Result 253 k/mm3 (150-375); Red Blood Count 2.89 M/mm3 (4.2-5.4); Red Cell Distribution Width 13.8 % (11.5-14.5); White Blood Count 6.3 K/mm3 (4.5-10.0)
[2021-03-13 06:23] LABS: Anion Gap 8 mmol/L (8-16); Blood Urea Nitrogen 12 mg/dL (7-17); Calcium 8.3 mg/dL (8.4-10.2); Carbon Dioxide 21 mmol/L (22-30); Chloride 106 mmol/L (98-107); Estimated CRCL calculation 50 ml/min; Estimated Glomerular Filt Rate > 60; Glucose 194 mg/dL (65-110); Potassium 3.9 mmol/L (3.4-5.0); Sodium 135 mmol/L (137-145)
--- NOTE | 2021-03-13 08:00 | ECG_ITS ---
Measurements Intervals [place] Rate: 91 P: 81 NM: 124 QRS: 33 QRSD: 98 T: 33 QT: 372 QTc: 458 Interpretive Statements SINUS RHYTHM MINIMAL Q WAVES- INFERIOR LEADS BASELINE ARTIFACT- AVR, AVL, AVF, V1-V3 BORDERLINE ECG Electronically Signed On 03-13-2021 8:38:30 CDT by Justin Phillips D.O.
--- NOTE | 2021-03-13 09:46 | PM.PNORT ---
Progress Note: A&P Assessment and Plan (1) Displaced fracture of right femoral neck: Code(s): S72.001A - Fracture of unspecified part of neck of right femur, initial encounter for closed fracture Status: Acute Assessment and Plan: Postoperative day 7 status post bipolar hemiarthroplasty. Radiographs satisfactory. Pain well controlled. Continue formal physical therapy weightbearing as tolerated. VTE prophylaxis with Xarelto. Limit narcotics. Patient okay for discharge from Ortho standpoint. Orthopedic Instructions: Date of Surgery 03/06/21 D/C to home with home health. Arrangements are in progress for someone to be staying with her. She will be returning to [place] after attending a wedding in a few weeks. Plan for her to be see in office prior to returning to [place]. Please call the office [phone] to schedule appointment. Wound Care: Remove Mepilex dressing at 7 days post op. Remove steristrips at 14 days post op. May shower. No soaking. PT: WBAT DVT prophylaxis: continue Xarelto for 30 days Pain medication: Tylenol for pain Subjective Subjective Date/Time Seen: 03/13/21 09:46 Patient resting comfortably in bed. Sitting up. She was very sleepy at the time of my visit. No pain in her hip at this time. Review of Systems Review of Systems: All systems reviewed & are unremarkable except as noted in HPI and below Exam Narrative: Resting comfortably. Wound nicely dressed. No drainage. Thigh soft. No hematoma or tenderness. Achilles tendon deformity previously noted. Unchanged. No lower extremity edema. Capillary refill brisk. Objective Data Vital Signs Vital Signs: Vital Signs - 24 hr 03/12/21 10:00 03/12/21 12:00 03/12/21 14:00 Temperature 97.6 F 97.4 F L Pulse Rate 90 96 91 Respiratory Rate 18 20 Blood Pressure 84/35 L 120/53 L Pulse Oximetry 98 100 03/12/21 16:00 03/12/21 20:00 03/12/21 21:45 Temperature 98.2 F Pulse Rate 96 104 H 102 H Respiratory Rate 16 Blood Pressure 137/55 L Pulse Oximetry 98 03/13/21 00:00 03/13/21 04:00 03/13/21 05:59 Temperature 97.5 F L Pulse Rate 114 H 105 H 97 Respiratory Rate 16 Blood Pressure 140/60 Pulse Oximetry 97 Intake/Output Intake/Output: Intake & Output 03/10/21 03/11/21 03/12/21 03/13/21 23:59 23:59 23:59 23:59 Intake Total 1420 2770 2290 50 Output Total 250 510 Balance 1420 2520 1780 50 Meds/Results Medications: Active Medications Generic Name Dose Route Start Last Admin Trade Name Freq PRN Reason Stop Dose Admin Acetaminophen 1,000 mg 03/07/21 17:12 03/09/21 13:41 Acetaminophen 500 Mg Tablet PO 1,000 mg Q6H PRN Administration Mild Pain (1-3) or Fever Amlodipine Besylate 10 mg 03/06/21 09:00 03/11/21 09:10 Amlodipine Besylate 5 Mg Tablet PO 10 mg DAILY RONNY Administration Dextrose 12.5 gm 03/05/21 17:49 Dextrose 50% 25 Gm/50 Ml Syringe IV PUSH PRN PRN Hypoglycemia Protocol Docusate Sodium 100 mg 03/07/21 09:00 03/12/21 16:55 Docusate Sodium 100 Mg Capsule PO 100 mg BID RONNY Administration Escitalopram Oxalate 5 mg 03/06/21 09:00 03/12/21 08:24 Escitalopram Oxalate 5 Mg Tablet PO 5 mg DAILY RONNY Administration Fluconazole 100 mg 03/12/21 09:00 03/12/21 10:00 Fluconazole 100 Mg Tablet PO 100 mg QAM RONNY Administration Glucagon 1 mg 03/05/21 17:49 Glucagon For Inj 1 Mg Vial IM PRN PRN Hypoglycemia Protocol Glucose 15 gm 03/05/21 17:49 Glucose Oral Gel 15 Gm Of Glucse In 37.5 Gm Tube PO PRN PRN Hypoglycemia Protocol Dextrose 1,000 mls @ 100 mls/hr 03/05/21 17:49 Dextrose 5% 1,000 Ml IVPB PRN PRN Hypoglycemia Protocol Ceftriaxone Sodium/Dextrose 1 gm in 50 mls @ 100 mls/hr 03/11/21 17:00 03/12/21 17:35 Rocephin 1 Gm/D5w 50 Ml IVPB Infused Q24H RONNY Infusion Insulin Aspart 2 - 5 units 03/06/21 08:00 03/12/21 16:5
[2021-03-13] MEDS: DOCUSATE SODIUM 100 MG CAPSULE PO ×2 (09:57→16:30)
[2021-03-13] MEDS: FLUCONAZOLE 100 MG TABLET PO (09:57)
--- NOTE | 2021-03-13 10:34 | PCOTNOTE ---
Attempted to see patient this am, however patient appeared drowsy in while sitting in chair upon entering. BP 85/43. RN notified and returned patient to bed. BP 109/45 in supine. No OT this date for this reason.
--- NOTE | 2021-03-13 11:42 | PM.IMPN ---
Progress Note: A&P Assessment and Plan (1) Orthostatic hypotension: Code(s): I95.1 - Orthostatic hypotension Status: Acute Assessment and Plan: Persistent, blood pressure today was 107/64 as laying down, 110/68 sitting, and was 97/49 when standing. When she was placed in the chair, her blood pressure dropped further down to 86 systolic. The patient did have some slight dizziness with this -will start IV fluids continuously at 100 mils per hour and watch for fluid overload -Sriram hose in place -amlodipine has been discontinued -no signs of blood loss on exam but H&H has been stable the last few days -may consider midodrine if she does not improve with IV fluids -this makes her at an increased fall risk which is worrisome. She is unable to go to SNF at discharge and will be going home. (2) UTI (urinary tract infection): Code(s): N39.0 - Urinary tract infection, site not specified Status: Acute Assessment and Plan: UA negative although patient was on antibiotics when this was drawn (could have sterilize sample) -she does have evidence of reactions such as increased white blood cells count in her urine - continue the ceftriaxone -no yeast growth in the new sample, suspect this was contaminant on the 1st sample. Will stop fluconazole (3) Hypotension: Code(s): I95.9 - Hypotension, unspecified Status: Acute Assessment and Plan: Likely multifactorial - no signs of PE, blood loss, ACS,or chest pain - blood cultures on admission are negative. She has been afebrile with normal white blood cell count. No systemic infection suspected at this time. -amlodipine on hold (4) Sinus tachycardia: Code(s): R00.0 - Tachycardia, unspecified Status: Acute Assessment and Plan: Improving - Tele showing rate 95 but increases when she sits up likely due to bp drop - no signs of PE, no shortness of breath and oxygen saturation 99% - monitor (5) Discharge planning issues: Code(s): Z02.9 - Encounter for administrative examinations, unspecified Status: Acute Assessment and Plan: unable to discharge to SNF - will discharge to home health when appropriate (6) Displaced fracture of right femoral neck: Code(s): S72.001A - Fracture of unspecified part of neck of right femur, initial encounter for closed fracture Status: Acute Assessment and Plan: Post op day 7 of Bipolar hemiarthroplasty, right hip -DVT prophylaxis- SCDs and Xarelto (7) Hypertension: Code(s): I10 - Essential (primary) hypertension Status: Chronic Assessment and Plan: hold amlodipine as above (8) Diabetes: Code(s): E11.9 - Type 2 diabetes mellitus without complications Status: Chronic Assessment and Plan: last glucose 194 - hold home Jardiance -A1c 6.9 - continue SSI (9) Acute metabolic encephalopathy: Code(s): G93.41 - Metabolic encephalopathy Status: Acute Assessment and Plan: Improved although I am unsure of the patient's actual baseline - no neurological deficits on exam - head CT 03/05 was negative for acute pathology. No signs of neurological deficits. Time Spent With Patient Time with patient: 25 - 35 minutes Subjective Date/time seen: 03/13/21 11:43 Interval history: Pt is a 85-year-old female here for hip fracture. Patient was seen today and somnolent but does wake up when asked. She says she is not any pain. She cannot recall why she is here in hospital but is able to tell me her name and hold a conversation appropriately. She denies chest pain, shortness of breath, fevers, chills, nausea or vomiting. She says she gets slightly dizzy when she stands up. Review of Systems Review of Systems: All systems reviewed & are unremarkable except as noted in HPI and below Exam Narrative: General: Well developed well nourished patient in [facility] HEENT: n
[2021-03-13] MEDS: INSULIN ASPART (*BKC) 100 UNITS/ML SUB-Q (12:31)
[2021-03-13] MEDS: SODIUM CHLORIDE 0.9% IV 1,000 ML 100 ML IV CONT ×2 (12:48→23:39)
[2021-03-13 12:54] LABS: Glucose Point of Care 155 mg/dl (65-105)
[2021-03-13 12:54] LABS: Glucose Point of Care 227 mg/dl (65-105)
--- NOTE | 2021-03-13 13:03 | PCPTNOTE ---
Attempted to see pt for second session this afternoon. Pt was asleep upon arrival and sheet writer was unable to get pt to open her eyes or respond to any questions. Attempted sternal rub, speaking loudly, and sitting pt more upright to improve alertness. Pt continued to keep eyes closed tightly and did not respond verbally. RN also attempted to wake pt up, but continued to keep eyes shut and did not respond to questions or encouragement. Not appropriate to complete PT session at this time. Will check back as schedule allows or attempt again tomorrow if pt is unable to participate later this date.
[2021-03-13] MEDS: RIVAROXABAN 10 MG TABLET PO (16:30)
[2021-03-13 16:40] LABS: Glucose Point of Care 113 mg/dl (65-105)
[2021-03-13 21:43] LABS: Glucose Point of Care 154 mg/dl (65-105)
[2021-03-14] VITALS (9 sets, daily range): BP systolic 102–135; BP diastolic 52–66; PULSE 91–98; RESP 20; TEMP 36.7–37.1; O2SAT 100
[2021-03-14 06:52] LABS: Hematocrit 26.2 % (37.0-47.0); Hemoglobin 7.9 g/dL (12.0-15.0)
[2021-03-14 07:18] LABS: Anion Gap 8 mmol/L (8-16); Blood Urea Nitrogen 11 mg/dL (7-17); Calcium 7.9 mg/dL (8.4-10.2); Carbon Dioxide 21 mmol/L (22-30); Chloride 107 mmol/L (98-107); Estimated CRCL calculation 50 ml/min; Estimated Glomerular Filt Rate > 60; Glucose 311 mg/dL (65-110); Magnesium 2.1 mg/dL (1.6-2.3); Potassium 3.9 mmol/L (3.4-5.0); Sodium 136 mmol/L (137-145)
[2021-03-14 08:42] LABS: Glucose Point of Care 272 mg/dl (65-105)
[2021-03-14] MEDS: DOCUSATE SODIUM 100 MG CAPSULE PO ×2 (08:42→16:19)
[2021-03-14] MEDS: INSULIN ASPART (*BKC) 100 UNITS/ML SUB-Q ×3 (08:43→16:21)
[2021-03-14] MEDS: SODIUM CHLORIDE 0.9% IV 1,000 ML 100 ML IV CONT (09:30)
[2021-03-14 11:42] LABS: Glucose Point of Care 224 mg/dl (65-105)
--- NOTE | 2021-03-14 12:49 | PM.DS ---
DS: Admitting Diagnosis Admitting Diagnosis hip fracture DS: Discharge Diagnosis Discharge Diagnosis (1) Orthostatic hypotension: Code(s): I95.1 - Orthostatic hypotension Status: Acute Assessment and Plan: Persistent but improving. Patient is asymptomatic with this. -improved with compression stockings and IV fluids -amlodipine has been discontinued -no signs of blood loss on exam and H&H has been stable the last few days -this makes her at an increased fall risk which is worrisome. She is unable to go to SNF at discharge and will be going home with family and home health. They were caution about her fall risk. (2) UTI (urinary tract infection): Code(s): N39.0 - Urinary tract infection, site not specified Status: Acute Assessment and Plan: UA negative although patient was on antibiotics when this was drawn (could have sterilize sample) -she does have evidence of reactions such as increased white blood cells count in her urine -patient received ceftriaxone and was discharged on cefdinir -no yeast growth in the new sample, suspect this was contaminant on the 1st sample. No indication for fluconazole (3) Hypotension: Code(s): I95.9 - Hypotension, unspecified Status: Acute Assessment and Plan: Likely multifactorial - no signs of PE, blood loss, ACS,or chest pain - blood cultures on admission are negative. She has been afebrile with normal white blood cell count. No systemic infection suspected at this time. -amlodipine on hold -improved (4) Sinus tachycardia: Code(s): R00.0 - Tachycardia, unspecified Status: Acute Assessment and Plan: Improving - Tele showing rate 98 but increases when she sits up likely due to bp drop - no signs of PE, no shortness of breath and oxygen saturation 99% (5) Discharge planning issues: Code(s): Z02.9 - Encounter for administrative examinations, unspecified Status: Acute Assessment and Plan: unable to discharge to SNF -discharge to home health (6) Displaced fracture of right femoral neck: Code(s): S72.001A - Fracture of unspecified part of neck of right femur, initial encounter for closed fracture Status: Acute Assessment and Plan: Post op day 8 of Bipolar hemiarthroplasty, right hip -DVT prophylaxis was Xarelto, 30 days total (7) Hypertension: Code(s): I10 - Essential (primary) hypertension Status: Chronic Assessment and Plan: Amlodipine discontinued (8) Diabetes: Code(s): E11.9 - Type 2 diabetes mellitus without complications Status: Chronic Assessment and Plan: last glucose 285 -continue home Jardiance at discharge -A1c 6.9 (9) Acute metabolic encephalopathy: Code(s): G93.41 - Metabolic encephalopathy Status: Acute Assessment and Plan: Much improved the day of discharge - no neurological deficits on exam - head CT 03/05 was negative for acute pathology. No signs of neurological deficits. DS: Summary Hospital Course Hospital Course: Date service 03/14/2021 Patient is an 85-year-old female with dementia [place] who presented to the emergency room on March 05, 2021 for a fall. Patient is in town for a family wedding and had a fall at their house and was unable to walk since the fall and was a bit more confused than usual. Vitals in the ER were temperature 37.6? C, pulse 103, respiratory rate 20, blood pressure 137/56, pulse ox 96 on room air. Initial CBC showed a slight leukocytosis 10.9, hemoglobin 10.6, hematocrit 32.7, platelets 283. BMP relatively normal with the exception glucose 204, chloride 109, and CO2 19. Chest x-ray was negative. Head CT was negative. Hip x-ray showed acute right hip transcervical neck fracture with impaction and superior displacement. Initial UA suspicious for UTI. Patient was admitted to the hospitalist
[2021-03-14] MEDS: RIVAROXABAN 10 MG TABLET PO (16:19)
[2021-03-14 16:20] LABS: Glucose Point of Care 285 mg/dl (65-105)
== END 2021-03-14 17:49 | disposition home health service (06) | DRG 521 ==
LOC: ANHED 16:24 → ANH2MED 19:19
PROVIDERS: Nurse Practitioner; Orthopaedic Surgery; Physician Assistant Surgical; Admitting Provider Internal Medicine; Emergency Provider Emergency Medicine; Visit Provider Physician Assistant
PROC: 0SRR01Z Replacement of Right Hip Joint, Femoral Surface with Metal Synthetic Substitute, Open Approach (ICD-10-PCS; CPT 27125; principal; 2021-03-06 16:00)
DX: S72.031A Displaced midcervical fracture of right femur, initial encounter for closed fracture (principal); G93.41 Metabolic encephalopathy; N39.0 Urinary tract infection, site not specified; F03.90 Unspecified dementia, unspecified severity, without behavioral disturbance, psychotic disturbance, mood disturbance, and anxiety; E11.9 Type 2 diabetes mellitus without complications; I10 Essential (primary) hypertension; G20 Parkinson's disease; Y93.9 Activity, unspecified; W19.XXXA Unspecified fall, initial encounter; Y92.9 Unspecified place or not applicable; Y99.9 Unspecified external cause status; Z87.891 Personal history of nicotine dependence; Z79.4 Long term (current) use of insulin; R00.0 Tachycardia, unspecified; I95.1 Orthostatic hypotension
CPT/HCPCS: 36415; 70450; 71045; 73502; 76775; 80048; 80053; 80076; 81001; 82948; 83036; 83605; 83735; 84100; 84443; 85014; 85018; 85025; 85027; 85610; 85730; 86140; 86850; 86900; 86901; 87040; 87086; 87088; 87106; 93005; 97110; 97116; 97161; 97166; 97530; 97535; 99285; A9270; C1776; J0131; J0171; J0295; J0690; J0696; J1815; J1885; J1956; J2270; J2405; J2704; J2710; J2795; J3010; J7030; J7040; J7120

== ENCOUNTER 2021-03-18 10:59 | Emergency (ER) | payer MEDICARE, SELFPAY ==
[2021-03-18] VITALS (25 sets, daily range): BP systolic 90–187; BP diastolic 47–107; PULSE 92–150; RESP 12–24; TEMP 36.9–37.9; O2SAT 92–100
--- NOTE | ~2021-03-18 | CT_ITS ---
EXAMINATION: CT brain wo con DATE: 03/18/2021 14:44 INDICATION: Altered mental status. TECHNIQUE: Computed tomography (CT) of the head was performed without intravenous contrast. The mA wa s adjusted according to patient size. Iterative reconstruction technique was employed. The dose-lengt h product was 908.00 mGy-cm. COMPARISON: Head CT 03/10/2021 FINDINGS: There is no intracranial hemorrhage, acute infarction, or abnormal intracranial mass lesion . There are scattered areas of low attenuation in the cerebral white matter, which is within normal l imits for the patient's age. The ventricles are normal in size. There is mild mucosal thickening in t he ethmoid sinuses. There are trace bilateral mastoid effusions. There are likely changes of ocular l ens replacement surgeries. IMPRESSION: 1. Normal aging brain. Reviewed, dictated and finalized at location A. IMPRESSION: 1. Normal aging brain.
--- NOTE | ~2021-03-18 | XR_ITS ---
EXAMINATION: XR chest 1V portable EXAM DATE: 03/18/2021 11:54 INDICATION: Fever, recent hip surgery. TECHNIQUE: Portable AP frontal chest x-ray was obtained. Comparison is made to prior examination from 03/05/2021. FINDINGS: The lungs are clear. There are no pleural effusions. Mild cardiomegaly. There is no pneu mothorax suspected. The bones are osteopenic. There are bony degenerative changes. IMPRESSION: No acute cardiopulmonary findings. Reviewed, dictated and finalized at location A.
--- NOTE | ~2021-03-18 | CT_ITS ---
EXAMINATION: CT hip RT wo con EXAM DATE: 03/18/2021 14:16 INDICATION: Recent hip replacement, right hip pain. TECHNIQUE: Spiral CT right hip was performed without contrast. Axial, coronal and sagittal images w ere reviewed. The dose-length product (DLP) for this examination was 173.01 mGy-cm. The exposure wa s tailored according to patient size (auto mA exposure control), and iterative reconstruction (ASIR) was used as additional dose reduction technique. Correlation is made to postoperative x-ray 03/06/2021 . FINDINGS: There is right hip replacement hardware in expected position. There is fracture through the medial aspect of the hip involving the lesser trochanteric region. This appears to be new compared t o the postoperative image, an acute fracture. This portion of the bone was buttressing proximal aspec t of the femoral stem, and now has about 1 cm displacement medially. The acetabulum, rami are intact. IMPRESSION: New fracture through medial aspect right hip/lesser trochanteric, fractured fragment disp laced medial to the femoral stem. Recommend consulting Dr. Mendes who placed the hardware. Reviewed, dictated and finalized at location A. IMPRESSION: New fracture through medial aspect right hip/lesser trochanteric, f ractured fragment displaced medial to the femoral stem. Recommend consulting Jonathan Mendes who placed the hardware.
--- NOTE | 2021-03-18 11:19 | ECG_ITS ---
Measurements Intervals [place] Rate: 142 P: 269 ND: 108 QRS: 46 QRSD: 88 T: -60 QT: 206 QTc: 317 Interpretive Statements ATRIAL FLUTTER/TACHYCARDIA WITH RAPID VENTRICULAR RESPONSE MINIMAL Q WAVES- ANTEROLAT/INF LEADS BORDERLINE ST-T WAVE ABNORMALITY- DIFFUSE LEADS BASELINE ARTIFACT- I, II, III, AVR, AVL, AVF, V1-V2 ABNORMAL ECG Electronically Signed On 03-18-2021 11:35:06 CDT by Justin Phillips D.O.
[2021-03-18 11:58] LABS: Basophils Percent Auto 0.3 % (0.2-1.2); Eosinophils Absolute Auto 0.1 K/mm3 (0-0.3); Eosinophils Percent Auto 0.9 % (0-4.4); Hematocrit 27.7 % (37.0-47.0); Hemoglobin 8.4 g/dL (12.0-15.0); Immature Granulocyte Absolute 0.04 K/mm3 (0.00-0.031); Immature Granulocyte Percent A 0.5 % (0-0.5); Lymphocytes Absolute Auto 0.55 K/mm3 (0.9-3.2); Lymphocytes Percent Auto 7.3 % (18.3-44.2); Mean Corpuscular HGB Conc 30.3 g/dl (32-36); Mean Corpuscular Hemoglobin 27.9 pg (26-34); Mean Platelet Volume 8.7 fl (7.4-10.4); Monocytes Absolute Auto 0.6 K/mm3 (0.1-0.6); Monocytes Percent Auto 7.6 % (2.6-8.5); Neutrophils Absolute Auto 6.3 K/mm3 (1.3-6.7); Neutrophils Percent Auto 83.4 % (45.5-73.1); Platelet Count Result 381 k/mm3 (150-375); Red Blood Count 3.01 M/mm3 (4.2-5.4); Red Cell Distribution Width 14.1 % (11.5-14.5); White Blood Count 7.5 K/mm3 (4.5-10.0)
[2021-03-18] MEDS: LACTATED RINGERS 1,000 ML 999 ML IV CONT ×2 (12:03→13:23)
[2021-03-18 12:13] LABS: Alanine Aminotransferase 13 U/L (4-35); Albumin Level 3.5 g/dL (3.5-5.1); Alkaline Phosphatase 183 U/L (38-126); Anion Gap 11 mmol/L (8-16); Aspartate Amino Transferase 26 U/L (14-36); Bilirubin,Total 0.6 mg/dL (0.2-1.3); Blood Urea Nitrogen 7 mg/dL (7-17); CRP 4.7 mg/dL (<1.0); Calcium 8.3 mg/dL (8.4-10.2); Carbon Dioxide 18 mmol/L (22-30); Chloride 106 mmol/L (98-107); Estimated CRCL calculation 46 ml/min; Estimated Glomerular Filt Rate > 60; Glucose 111 mg/dL (65-110); Lipase 26 U/L (23-300); Potassium 3.5 mmol/L (3.4-5.0); Sodium 135 mmol/L (137-145)
--- NOTE | 2021-03-18 12:33 | PC.NURSE ---
Spoke to Tejal @ [facility] to add procalcitonin @ [id number]
[2021-03-18 12:50] LABS: INR 1.3
[2021-03-18 12:51] LABS: Partial Thromboplastin Time 30.1 SECONDS (22.3-36.8)
[2021-03-18 13:12] LABS: Add Urine Microscopic? YES; Appearance Urine Clear (Clear); Bacteria Urine Trace /hpf; Bilirubin Urine Negative (Negative); Blood Urine Negative (Negative); Color Urine Straw (Yellow); Glucose Urine UA 3+ mg/dL (Negative); Ketones Urine 1+ mg/dL (Negative); Leukocyte Esterase Ur Negative LEU/UL (Negative); Mucus Urine Rare /lpf; Nitrate Urine Negative (Negative); Protein Urine Negative (Negative); RBC Urine 0-2 /hpf (0-2); Specific Grav Ur 1.017 (1.001-1.035); Urobilinogen Urine Negative mg/dL (<2.0)
[2021-03-18 13:41] LABS: CRP 4.3 mg/dL (<1.0)
--- NOTE | 2021-03-18 13:45 | WPDCN ---
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 She was found to have a periprosthetic hip joint fracture and Dr. Mendes has requested transfer to a tertiary care facility for management. Regarding the low-grade fever and tachycardia, I recommended a D-dimer to rule out possible clot given recent orthopedic surgery. I also recommended blood cultures (urinalysis and chest x-ray were unremarkable). After recommendations the patient was left in care of the emergency department provider who is arranging transfer to outside facility. Supervising physician for this consultation is Dr. Boom Navarro. [facility] Data of Consult Date/Time: 03/18/21 13:45 Primary Care Provider: DIRECTOR ASSET PHYSICIAN Consult Narrative Narrative: This is an 85-year-old female with diabetes and hypertension whom the hospitalist service has been consulted for evaluation of low-grade fever, generalized malaise, and inability to bear weight on her right leg. She is known to the hospitalist service with a recent admission for a right hip fracture after fall, status post right hemiarthroplasty per Dr. Mendes on 03/06/2021. She was discharged to her family on March 12 and within a day or so of discharge the patient began demonstrating worsening confusion with complaints of worsening right hip pain and the need for increasing assistance from family members. Today she was not able to bear weight on that leg due to pain though she could not further elaborate. In the emergency department she was found to have a low-grade fever but the rest of her workup was unrevealing. At the time my evaluation the patient had her eyes forced close and would mumble nonsensically when asked questions. She did flinch when palpating the right anterior lateral hip and she yelled in pain with passive range of motion with the same. She did not answer questions or follow commands. Review of Systems Review of Systems: Unable to be obtained given clinical condition as above. 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 History of vocal cord polypectomy Family History Family History Mother Congestive heart failure Son Diabetes mellitus Father Heart disease Social History Social History (Updated 03/19/21 @ 00:01 by Daphne Guevara PA-C) Social History: The patient is and is staying with her daughter in the area. She is originally from [facility]. She has a remote smoking history. No alcohol or illicit substance use. Her daughter, Petrona Whittington, is her durable power criminal attorney for healthcare. Meds Home Medications and Allergies Home Medications Medication Instructions Recorded Confirmed Type Jardiance 25 mg PO DAILY 03/05/21 03/05/21 History escitalopram oxalate 5 mg PO DAILY 03/05/21 03/05/21 History rivaroxaban [Xarelto] 10 mg PO DAILY@1700
--- NOTE | 2021-03-18 14:11 | PC.NURSE ---
Patient to radiology.
--- NOTE | 2021-03-18 15:41 | PC.NURSE ---
Per EDP respiratory, unable to obtain ABG because patient, was pinching and unable to hold arm still. DONATO Valdovinos notified.
[2021-03-18 16:10] LABS: D Dimer 2.85 ug/mL (<0.48)
--- NOTE | 2021-03-18 16:11 | ED.GENADULT ---
HPI - General Adult General Chief complaint: Unspecified Stated complaint: recent hip surgery,not feeling well Time Seen by Provider: 03/18/21 11:20 Source: family and old records reviewed Mode of arrival: ambulatory Limitations: clinical condition History of Present Illness HPI narrative: Patient is an 85-year-old female who presents from home for evaluation of continued altered mentation and right hip pain patient had right hip him arthroplasty on March [address] Randal Mendes who notes that the surgery had gone accordingly and that the patient was improving as far as her ambulatory status and healing from the surgery. Patient went home on March 12 daughter notes on the second day of being home she began to have increasing confusion and complaining of right hip pain was having increasing need for assistance with positioning and movement they deny any injury or trauma they note that she has been with family while at home and each day has become increasingly more agitated and confused and on willing to bear weight. Related Data Home Medications Medication Instructions Recorded Confirmed Jardiance 25 mg PO DAILY 03/05/21 03/05/21 escitalopram oxalate 5 mg PO DAILY 03/05/21 03/05/21 Allergies Allergy/AdvReac Type Severity Reaction Status Date / Time prednisone Allergy Unknown Other Verified 03/05/21 18:14 Review of Systems Review of Systems: ROS unobtainable: Yes unobtainable due to medical condition PMFSH Past Medical History Medical History Diabetes Fuchs' corneal dystrophy Hypertension Kidney stone Parkinsons Surgical History Surgical History H/O cataract extraction H/O: hysterectomy History of vocal cord polypectomy Family History Family History Mother Congestive heart failure Son Diabetes mellitus Father Heart disease Social History Social History Social History: The patient is . Petrona cantrell is her durable power criminal attorney for healthcare. The patient is listed as a full code. It was noted that the patient smoked as a teenager. According to records there is no alcohol or drug use. The patient has a son and daughter. Years smoked: 10 Smoking status: Former smoker Tobacco type: cigarettes Second hand tobacco smoke exposure: No Additional smoking assessment comments: quite in her 30s Alcohol intake: never Substance use: never Spiritual care concerns: No Exam Narrative: GENERAL: Ill-appearing, well-nourished, and in no acute distress. HEAD: Normocephalic, atraumatic. EYES: PERRLA and EOMI. ENT: Nares clear, no rhinorrhea or epistaxis. Mucous membranes moist. CHEST: Clear to auscultation. No respiratory distress. No wheezes rales or rhonchi HEART: Tachycardic rate and regular rhythm. No murmur heard. Normal peripheral pulses. ABDOMEN: Soft, nontender, nondistended EXTREMITIES: Normal range of motion. No edema. SKIN: Warm, dry, no rash. Right hip and surgical wound without deformity erythema or warmth to touch NEURO: No focal deficits. Alert and oriented to self. . PSYCH: Patient waxes and wanes between resting comfortably to agitation Course Course Emergency Course: Case discussed with outside specialist family and orthopedist at [facility] and discussion was made to transfer the patient given her fracture of her recent surgically repaired hip she was hydrated with normalizing heart rate and pressures she is still confused. ABCs and vital signs at this time intact and stable. Consultations Consultation #1: Discussion was made with hospitalist and orthopedic surgeon at [facility] it was found that she has a right periprosthetic fracture with discussion for transfer to tertiary facility given this finding Discussion was made chio
[2021-03-18 16:12] LABS: Lactic Acid Reflex 0.9 mmol/L (0.7-2.1)
[2021-03-18 23:04] LABS: Magnesium 2.2 mg/dL (1.6-2.3)
[2021-03-19 20:43] LABS: SARS-CoV-2 RNA PCR Negative
[2021-03-23 09:38] LABS: Procalcitonin 0.2 ng/mL
== END 2021-03-18 17:01 | disposition short-term general hospital (02) ==
PROVIDERS: Emergency Medicine Emergency Medical Services; Emergency Provider Emergency Medicine
DX: M97.01XA Periprosthetic fracture around internal prosthetic right hip joint, initial encounter (principal); R41.82 Altered mental status, unspecified; E11.9 Type 2 diabetes mellitus without complications; I10 Essential (primary) hypertension; G20 Parkinson's disease; Z87.891 Personal history of nicotine dependence; Z20.822 Contact with and (suspected) exposure to COVID-19
CPT/HCPCS: 36415; 51701; 70450; 71045; 73700; 80053; 81001; 83605; 83690; 83735; 84145; 85025; 85380; 85610; 85730; 86140; 87040; 87804; 93005; 96361; 96374; 99285; C9803; J0131; J7120; U0003; U0005